=== PATIENT | female | born 1930 | race Caucasian/White ===

== ENCOUNTER → 2016-11-15 | Outpatient (CLI) | payer OTHER, BC ==
[~2016-11-15] MED LIST: ALT/10 PO; AMIO200T4 PO; ASPI81TA28 PO; ATOR80TA PO; CHOL100010 PO; CHOL100027 PO; CRD200 PO; DOXY100C2 PO; FERR1TAB23 PO; HYDR-5688 PO; ISOS120T5 PO; LETR2TAB PO; LEVO88TA PO; MAGN400T6 PO; METO50TA16 PO; NITR-5 PO; NITR0.4S UT; PANT40TA PO; POLY335019 PO; PRED10TA PO; TPRSR/25 PO; ULT/50 PO; ZNTT/150 PO
[2016-11-15 17:36] LABS: URINE APPEARANCE CLEAR (CLEAR); URINE BILIRUBIN NEG (NEG); URINE COLOR YELLOW; URINE EPITHELIAL CELL AUTO 0-5 /lpf (0-5); URINE NITRITE NEG (NEG); URINE SPECIFIC GRAVITY 1.009 (1.000-1.030); UROBILINOGEN NEG (NEG); ZZUR CULT IF INDIC CLEAN CATCH NO
[2016-11-15 17:47] LABS: BLOOD UREA NITROGEN 13 mg/dl (7-18); BUN/CREATININE RATIO 12.1 (10-20); CALCIUM 9.2 mg/dl (8.5-10.1); CARBON DIOXIDE 30 mmol/L (21-32); CHLORIDE 104 mmol/L (98-107); GLUCOSE 110 mg/dl (70-99); MAGNESIUM 2.3 mg/dl (1.8-2.4); SODIUM 141 mmol/L (136-145)
[2016-11-15 17:52] LABS: MANUAL MICROSCOPIC REQUIRED? NO; REVIEW REQ? NO
== END | disposition home or self-care (01) ==
LOC: C.LABPVFM 15:24
PROVIDERS: ATTEND Family Medicine
DX: R39.9 Unspecified symptoms and signs involving the genitourinary system (principal); M79.1 Myalgia

== ENCOUNTER 2016-11-22 06:35 | Observation (INO) | payer OTHER, BC ==
[~2016-11-22] VITALS: Ht 170.2 cm; Wt 80.0 kg
[~2016-11-22 06:35] MED LIST changes: -AMIO200T4 PO; -ASPI81TA28 PO; -CHOL100027 PO; -CRD200 PO; -DOXY100C2 PO; -METO50TA16 PO; -POLY335019 PO; -PRED10TA PO; -TPRSR/25 PO; -ULT/50 PO; -ZNTT/150 PO
[2016-11-22] MEDS ORDERED: LIDOCAINE HCL 1% 20 ML VIAL ONE (07:17)
[2016-11-22] MEDS ORDERED: BACITRACIN 50000 UNIT VIAL ONE (07:17)
[2016-11-22] MEDS ORDERED: BUPIVACAINE 0.5 % 5 MG/1 ML MPF 30ML VIAL ONE (07:17)
[2016-11-22] MEDS ORDERED: ULT/50 PO (07:24)
[2016-11-22] MEDS ORDERED: TPRSR/25 PO (07:24)
[2016-11-22] MEDS ORDERED: ASPI81TA28 PO (07:25)
[2016-11-22] MEDS ORDERED: ZNTT/150 PO (07:25)
[2016-11-22 07:26] VITALS: BP 163/66; PULSE 73; TEMP 36.9; O2SAT 96; BMI 28.0
[2016-11-22] MEDS ORDERED: FENTANYL CITRATE INJ 50 MCG/1 ML 2 ML VIAL ONE ×2 (07:29→08:51)
[2016-11-22] MEDS ORDERED: MIDAZOLAM HCL 5 MG/ML 1 ML VIAL ONE (07:29)
--- NOTE | 2016-11-22 07:57 | History & Physical Bridge Note ---
H&P Re-Evaluation Bridge Note: I have examined the patient, reviewed the History & Physical and in the interval since the performance of the History & Physical I have noted the following changes of clinical significance: New HNP dictated today pt with SSS for dual chamber ppm
--- NOTE | 2016-11-22 07:58 | Procedure Note ---
Pre-Mod Sedation Assessment General Date of Moderate Sedation: Nov 22, 2016. Vital Signs: Vital Signs Past 12 Hours Date Time Temp Pulse Resp B/P Pulse Ox O2 Delivery O2 Flow Rate FiO2 11/22/16 07:26 36.9 73 18 163/66 96 Room Air Review Cardiovascular: regular rate, rhythm Abdomen: soft Lungs: lungs clear Airway Class: II Pre-Sedation Airway Assessment Oral Cavity: Dentures, WNL Able to Visualize Vocal Cords: No Short Thick Neck: No Hx of Sleep Apnea: No Smoking Status: Former Smoker Mallampati Classification: Class II ASA Classification: Class II Procedure Planning Contraindications-for Mod Sed: None Yes Notes The planned sedation has been discussed with the patient and consent obtained. I have identified the patient, determined the appropriateness of sedation and have assessed the patient immediately prior to the procedure. All medicine(s) and interventions are by my order.
[2016-11-22] MEDS ORDERED: MIDAZOLAM HCL 1 MG/ML 2ML VIAL ONE (09:02)
[2016-11-22] MEDS ORDERED: METOPROLOL TARTRATE 1 MG/ML VIAL ONE (09:19)
--- NOTE | 2016-11-22 09:46 | Procedure Note ---
Post-Mod Sedation Assessment General Date of Moderate Sedation Nov 22, 2016. Vital Signs: Vital Signs Past 12 Hours Date Time Temp Pulse Resp B/P Pulse Ox O2 Delivery O2 Flow Rate FiO2 11/22/16 07:26 36.9 73 18 163/66 96 Room Air Review - Discharge Criteria Vital Signs Stable: Yes Alert/Oriented/Conversant: Yes Returned to Baseline Mental St: Yes Nausea Absent/Minimal: Yes Pain/Discomfort/Absent/Minimal: Yes Normal/Baseline Respirations: Yes Active Bleeding?: No Pt Received D/C Instructions: N/A Prescriptions Given: None Specific Proced. D/C Criteria Distal Pulses Present (Cardiac: N/A Groin site assessed-Card Cath: N/A Voided Prior To Discharge: N/A Discharged Patients Adult Escort/Transportation: N/A
--- NOTE | 2016-11-22 09:47 | [facility] Post Operative Brief Note ---
Immediate Operative Summary Operative Date Nov 22, 2016. Pre-Operative Diagnosis TBS Post-Operative Diagnosis SAME Procedure(s) Performed DUAL CHAMBER PACEMAKER RATE RESPONSIVE UNDER FLUOROSCOPIC GUIDANCE WITH PERIPHERAL VENOGRAM Surgeon JEREMY DOMÍNGUEZ Rn Midwife Surgeon(s) NONE Estimated Blood Loss 15CC Findings NONE Fluids (cc crystalloids) 200CC Specimens NONE Drains NONE Anesthesia 7MG VERSED AND 200MCG FENTANYL Complication(s) None Disposition PCU
--- NOTE | 2016-11-22 09:51 | Discharge Instructions ---
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 Current Hospital Diet Patient's current hospital diet: AHA Diet (Heart Healthy) Discharge Diet Recommended Diet: AHA Diet (Heart Healthy) Procedures Procedures Performed: DUAL CHAMBER PACEMAKER RATE RESPONSIVE UNDER FLUOROSCOPIC GUIDANCE WITH PERIPHERAL VENOGRAM Pending Studies Studies pending at discharge: no Medical Emergencies . Who to Call and When: Medical Emergencies: If at any time you feel your situation is an emergency, please call 911 immediately. . Non-Emergent Contact Non-Emergency issues call your: Pharmacy Laboratory Technician . . "Provider Documentation" section prepared by Bernadine Delarosa. VTE Core Measure Inpt VTE Proph given/why not?: SCD's
--- NOTE | 2016-11-22 09:55 | Discharge Summary ---
Discharge Summary Admission Date: 11/22/2016 Discharge Date: Nov 23, 2016 Discharge Disposition: Home Principal Diagnosis: TACHY-GUSTAVO SYNDROME Secondary Diagnoses/Problems: PAF NO LONGER ON COUMADIN SINUS ARREST/JUNCTIONAL RHYTHM HTN HLD CKD STAGE III Procedures: DUAL CHAMBER RATE RESPONSIVE PERMANENT PACEMAKER Medication Reconciliation New Medications: Amiodarone HCl (Amiodarone HCl) 200 Mg Tab 400 MG PO BID for 14 Days, #56 TAB take 400mg 2x a day by mouth for 2 weeks then decrease to 200mg daily Continued Medications: Aspirin (Aspirin Ec) 81 Mg Tab 81 MG PO DAILY Atorvastatin Calcium (Lipitor) 80 Mg Tab 80 MG PO DAILY, TAB Cholecalciferol (Vitamin D) 1,000 Inter.unit Tab 2000 INTER.UNIT PO DAILY, TAB Ferrous Sulfate (Iron) 325 Mg Tab 1 TAB PO DAILY Isosorbide Mononitrate Ext Rel (Imdur Ext Rel) 120 Mg Ertab 120 MG PO QAM, 0 Refills Letrozole (Femara) 2.5 Mg Tab 2.5 MG PO DAILY, TAB Levothyroxine Sodium (Synthroid) 88 Mcg Tab 88 MCG PO DAILY, TAB Magnesium Oxide (Mag-Ox) 400 Mg Tab 400 MG PO HS, 0 Refills Metoprolol Succinate (Metoprolol Succinate ER) 25 Mg Tabcr 12.5 MG PO DAILY, #90 Nitroglycerin (Nitrostat) 0.4 Mg Sub 0.4 MG UT UD PRN for Chest Pain PLACE ONE TABLET UNDER THE TONGUE EVERY 5 MINUTES FOR UP TO 3 DOSES IF NEEDED FOR CHEST PAIN. Pantoprazole (Protonix) 40 Mg Tab 40 MG PO BID, TAB Ramipril (Altace) 10 Mg Cap 5 MG PO DAILY, CAP Ranitidine (Zantac) 150 Mg Tab 150 MG PO BID, TAB Tramadol Hcl (Ultram) 50 Mg Tab #360 Hospital Course PT ADMITTED FOR ELECTIVE PACEMAKER IMPLANT DUE TO TACHYBRADY SYNDROME. PT UNDERWENT PROCEDURE WITHOUT ANY COMPLICATIONS MONITORED OVERNIGHT AND DISCHARGED HOME FOLLOWING DAY Total time spent on discharge = This includes examination of the patient, discharge planning, medication reconciliation, and communication with other providers. Discharge Instructions ACTIVITY RECOMMENDATIONS: * Do not raise affected arm over head for 4 weeks. SPECIAL CARE INSTRUCTIONS: * If bleeding occurs, apply direct pressure to area for 5 minutes. * Call your doctor if you have severe pain, fever, drainage or bleeding at site. * Keep dry for 48 hours then remove. * Keep any scheduled doctor's appointment. * Implant Card - hand held device with website information given. SKIN IRRITATION: * You may experience some redness and/or swelling in the area where radiation was administered. If any skin irritation occurs, please contact your family physician. FOLLOW UP VISIT: Keep any scheduled doctor appointments.
[2016-11-22] MEDS ORDERED: NITROGLYCERIN 0.4 MG SL PER TAB CHARGE UT PRN (10:00)
[2016-11-22] MEDS ORDERED: LETROZOLE 2.5 MG TAB PO SCH (11:30)
[2016-11-22] MEDS ORDERED: IV FLUIDS COMPLETED PRN (11:45)
[2016-11-22] MEDS: OXYCODONE/ACETAMINOPHEN 5-325 TAB PO PRN ×3 (11:46→22:16)
[2016-11-22 11:50] VITALS: BP 162/71; PULSE 80; TEMP 36.4; O2SAT 95; Ht 170.2 cm; Wt 80.0 kg
[2016-11-22 12:00] VITALS: BP 159/71; PULSE 82; TEMP 36.4; O2SAT 95
[2016-11-22 16:00] VITALS: BP 123/70; PULSE 64; TEMP 36.4; O2SAT 95
[2016-11-22 20:00] VITALS: BP 131/66; PULSE 74; TEMP 36.8; O2SAT 94
[2016-11-22] MEDS: ACETAMINOPHEN 325 MG TAB PO PRN (20:05)
[2016-11-22] MEDS ORDERED: MAGNESIUM OXIDE 400 MG TAB PO SCH (21:00)
[2016-11-22] MEDS: RANITIDINE HCL 150 MG TAB PO SCH (21:18)
[2016-11-22] MEDS: PANTOprazole SOD 40 MG TAB PO SCH (21:18)
[2016-11-23 00:10] VITALS: BP 159/83; PULSE 79; TEMP 36.7; O2SAT 96
[2016-11-23 04:00] VITALS: BP 151/66; PULSE 71; TEMP 36.7; O2SAT 96
[2016-11-23] MEDS: ACETAMINOPHEN 325 MG TAB PO PRN (04:26)
[2016-11-23] MEDS ORDERED: LEVOTHYROXINE 88 MCG TAB PO SCH (06:00)
--- NOTE | 2016-11-23 06:27 | DIAGNOSTIC IMAGING REPORT ---
CHEST 2 VIEWS ROUTINE CLINICAL HISTORY: EXACT TIME ORDERED Evaluate for pneumothorax and lead placement pacemaker position COMPARISON STUDY: 09/02/2015 FINDINGS: Placement of a permanent bipolar cardiac pacemaker. Leads are in good position. Lungs are clear. No evidence pneumothorax. IMPRESSION: Bipolar cardiac pacemaker in good position Electronically signed by: Jak Palencia M.D. 11/23/2016 6:25 AM Dictated Date/Time: 11/23/2016 6:25 AM
[2016-11-23 07:52] VITALS: BP 178/88; PULSE 88; TEMP 36.4; O2SAT 96
[2016-11-23] MEDS: PANTOprazole SOD 40 MG TAB PO SCH (07:56)
[2016-11-23] MEDS: RANITIDINE HCL 150 MG TAB PO SCH (07:58)
[2016-11-23] MEDS ORDERED: ENALAPRIL MALEATE 10 MG TAB PO SCH ×2 (09:00)
[2016-11-23] MEDS ORDERED: FERROUS SULFATE 325 MG TAB PO SCH (09:00)
[2016-11-23] MEDS ORDERED: METOPROLOL SUCC 25MG EXT REL TAB PO SCH (09:00)
[2016-11-23] MEDS ORDERED: ASPIRIN 81 MG ECTAB PO SCH (09:00)
[2016-11-23] MEDS ORDERED: ISOSORBIDE MONONITRATE 60 MG TABCR PO SCH (09:00)
[2016-11-23] MEDS ORDERED: ATORVASTATIN 20 MG TAB PO SCH (09:00)
[2016-11-23] MEDS ORDERED: ATORVASTATIN 40 MG TAB PO SCH (09:00)
[2016-11-23] MEDS ORDERED: CHOLECALCIFEROL 1000 INTER.UNIT TAB PO SCH (09:00)
[2016-11-23] MEDS ORDERED: LETROZOLE 2.5 MG TAB PO SCH (09:00)
[2016-11-23 09:22] VITALS: BP 154/85; PULSE 93
[2016-11-23 11:12] VITALS: BP 154/85; PULSE 93; TEMP 36.4; O2SAT 96
[2016-11-23] MEDS ORDERED: CRD200 PO (11:32)
[2016-11-23] MEDS: OXYCODONE/ACETAMINOPHEN 5-325 TAB PO PRN (12:16)
--- NOTE | 2016-11-23 14:52 | HISTORY & PHYSICAL EXAMINATION ---
DATE OF ADMISSION: 11/22/2016 REFERRING PHYSICIAN: Dr. Jak Dickinson. HISTORY OF PRESENT ILLNESS: This is an 85-year-old female who has been having evidence of tachy-keisha syndrome and having to stop her metoprolol and amiodarone. She continued to have palpitations and tachycardia as well as more profound fatigue and shortness of breath along with lightheadedness and dizziness. For this reason, she was recommended a permanent pacemaker. PAST MEDICAL HISTORY: Apices, hypertension, benign neoplasm of large bowel, constipation, mitral regurgitation, hyperlipidemia, chronic kidney disease, stage 3. OUTPATIENT MEDICATIONS: Ranitidine, Lopressor 12.5 daily, Protonix, iron supplement, Altace 5 mg, Synthroid 88 mcg, atorvastatin, tramadol, aspirin, Tylenol, MiraLax, Imdur, nitroglycerin PAST SURGICAL HISTORY: Angioplasty, colonoscopy, breast lump removed, cystoscopy. FAMILY HISTORY: Not significant. ALLERGIES: ADHESIVE TAPE. SOCIAL HISTORY: She is . Former tobacco user. No illicit drug use. REVIEW OF SYSTEMS: All other 10-point review of systems reviewed and are essentially negative at this time. See HPI for pertinent positives. PHYSICAL EXAMINATION: VITAL SIGNS: Blood pressure 163/66, heart rate 77, respirations 18, oxygen saturation 96% on room air, temperature 36.9 degrees Celsius. GENERAL: She is awake, alert and oriented x3, in no acute distress, sitting up comfortably on the exam table. HEENT: Normocephalic, atraumatic. Extraocular motion intact. Sclerae are nonicteric. Mucous membranes moist. NECK: Supple, no carotid bruits appreciated. No JVD. Carotid upstrokes normal. CARDIOVASCULAR: Normal S1, S2, regular rate and rhythm. Positive systolic murmur 3/6, pulses intact. Trace lower extremity edema bilaterally. PULMONARY: Clear to auscultation bilaterally. No wheezes, rales, rhonchi. ABDOMEN: Positive bowel sounds, soft, nontender. NEUROLOGIC: Grossly intact. SKIN: Grossly warm and dry. PERTINENT TESTING: Results EKG in 07/2016, sinus rhythm, 69 beats per minute, right bundle-branch block; December 2015, sinus rhythm with marked sinus arrhythmia at 60 beats per minute, first-degree AV block, right bundle-branch block; 12/29/2015 marked sinus keisha with sinus arrhythmia at 46 beats per minute, right bundle-branch block. Echocardiogram in December 2014, EF is normal. Moderate LVH. Severe mitral annular calcification, mildly calcified leaflets of the mitral valve, mild mitral stenosis and mild mitral regurgitation, grade 2 diastolic dysfunction, aortic valve sclerosis, no aortic stenosis, mild aortic valve regurgitation. in December 2015, sinus rhythm with an average heart rate of 52 beats per minute, the slowest heart rate was 32 beats per minute at 7 in the morning along with a junctional escape and sinus arrest and one episode of nonsustained VT. Most recent labs were all within normal limits. IMPRESSION: 1. Tachy-keisha syndrome. 2. Paroxysmal atrial fibrillation, no longer on Coumadin, previously on amiodarone but stopped due to bradycardia. 3. Sinus arrest and junctional arrhythmias. 4. Right bundle-branch block. 5. Hypertension. 6. Hyperlipidemia. 7. Chronic kidney disease, stage 3. PLAN: Recommend dual-chamber permanent pacemaker under fluoroscopic guidance along with peripheral. The patient was informed of the risks, benefits and alternatives of the procedure. Risks include but not limited to sudden cardiac , cardiac arrhythmias, cerebrovascular accident, myocardial infarction, injury to the blood vessels, chamber of the heart, lungs, bleeding and infection. The patient understood these and agreed to the procedure as planned. Informed consent was obtained. NIK
--- NOTE | 2016-11-23 15:00 | OPERATIVE REPORT ---
DATE OF OPERATION: 11/22/2016 PREOPERATIVE DIAGNOSIS: Tachybrady syndrome. POSTOPERATIVE DIAGNOSIS: Same. PROCEDURE: Dual chamber rate responsive permanent pacemaker under fluoroscopic guidance along with peripheral venogram. SURGEON: Bernadine Delarosa DO ICE [employer] VAN VENDOR: None. ANESTHESIA: Monitored conscious sedation. DESCRIPTION OF THE PROCEDURE: The patient was brought into the electrophysiology lab in a fasting state. She was connected to continuous cardiac monitoring. A time-out was performed to ensure patient's identity and procedure correctly. The patient was prepped and draped over the left infraclavicular space in a normal surgical standard fashion. The patient received prophylactic antibiotics prior to incision. Moderate conscious sedation was given throughout the procedure for patient's comfort level. [place] precautions were maintained throughout the procedure. A 10 mL of 1% lidocaine, bupivacaine mixture were given in the left deltoid groove. Incision was made in the deltopectoral groove. Blunt dissection was performed to identify a cephalic vein that was then isolated 0 silk ties and nicked with an 11 blade. A guide wire was advanced without any restrictions. The dilator was removed and a second 8-Indian sheath was inserted over the guidewire without any resistance and a second guidewire was inserted through the 8-Indian sheath to allow for retained venous access. Right ventricular pacing lead was advanced through the sheath into the right ventricle and positioned into the ventricular apex under fluoroscopic guidance. There was adequate pacing and sensing thresholds and there was no diaphragmatic stimulation at high output pacing. The 8-Indian sheath was peeled away and lead was fixated to pectoralis muscle using 0 silk suture. A second 8-Indian sheath was inserted over the retained guidewire to the cephalic vein; however, access tight and I ended up losing access, so we then had to do a peripheral venogram 10 mL of IV contrast diluted in 10 mL of saline followed by 20 mL flush to identify the axillary vein. Using a venous puncture stick, the axillary vein was obtained and the guidewire was inserted without any resistance. The 8-Indian sheath was then advanced over the guidewire without any resistance and the dilator and guidewire were removed. The right atrial lead was then advanced through the sheath into the right atrium and positioned into the right atrial appendage under fluoroscopic guidance. There was adequate pacing and sensing thresholds and no diaphragmatic stimulation with high output pacing. The 8-Indian sheath was split and lead was fixated to the pectoralis muscle using 0 silk suture. An additional 5 mL of 1% lidocaine, bupivacaine mixture were given in the pectoralis fascia. Then using blunt dissection over the pectoralis muscle a pacemaker pocket was created. The pocket was flushed with copious amounts of bacitracin saline wash and inspected for hemostasis. The pulse generator was then attached to the leads making sure that the pins were in appropriate position, passed the set screws and the set screws were all tightened. The pulse generator was then placed in the pocket, making sure that the leads were lying flat beneath the device. A stay stitch using 0 silk suture was used to secure the device to the pectoralis muscle. The incision was closed in a 3-layer fashion using a 2-0 Vicryl interrupted suture, followed by a 3-0 Vicryl interrupted suture, followed by a 4-0 Monocryl running stitch and Dermabond was applied. EQUIPMENT: Pulse generator is M[employer] Landa [id number], serial #[id number], [email or web address]. Right atrial lead, Medtronic 5076-52 cm, serial #[id number]. Right ventricular lead, Medtronic 5076-58 cm, serial #[id number]. INTRAOPERATIVE TESTIN. Right atrial lead: P-wave sensing 1.5 millivolts, impedance 765 ohms, and threshold 0.7 volts at 0.9 milliamps. 2. Right ventricular lead: R-wave 12.9 millivolts, impedance 1093 ohms, and threshold 0.5 volts at 0.4 milliamps. FINAL MEASUREMENTS THROUGH THE DEVICE: 1. Right atrial lead: P-wave sensing 1.8 millivolts, impedance 589 ohms, and threshold 0.5 volts at 0.4 milliseconds. 2. Right ventricular lead: R-wave sensing 12.4 millivolts, impedance 684 ohms, and threshold 0.5 volts at 0.4 milliseconds. FINAL PARAMETERS: MVP-R 60/110. Right atrial amplitude 3.5 volts, pulse width 0.4 milliseconds, sensitivity 0.3 millivolts. Right ventricular amplitude 3.5 volts, pulse width 0.4 milliseconds, sensitivity 0.9 millivolts. IMPRESSION: Successful implantation of a dual chamber rate responsive permanent pacemaker under fluoroscopic guidance along with the peripheral venogram secondary to tachybrady syndrome. PLAN: Monitor patient overnight, 12-lead ECG, chest x-ray. She is not allowed to lift left elbow or left shoulder for 1 month and not lift more than 10 pounds with the left arm for 2 weeks. She can shower in 2 days. We will restart her amiodarone load 400 mg twice a day for 2 weeks then followed by 200 mg daily. She should follow up in our [facility] [place] office in 7-10 days for device and wound check. I attest to the content of the Intraoperative Record and any orders documented therein. Any exceptions are noted below. MTDD
[2016-11-23] MEDS ORDERED: AMIODARONE 200 MG TAB PO SCH (21:00)
[2016-11-23] MEDS ORDERED: CHOL100027 PO (23:55)
[2017-03-22] MEDS ORDERED: PRED10TA PO (05:35)
--- NOTE | 2017-04-28 08:43 | CODING QUERY MEDICAL NECESSITY ---
CQSUPPORTING DIAGNOSIS NEEDED A supporting diagnosis is required for the test/procedure performed on this patient in order for us to be reimbursed by the patient's insurance. Please provide a supporting diagnosis for the following test/procedure listed below next to the test name along with your signature. *If there is no additional diagnosis for this patient that would support the following test/procedure please document that below next to the test/procedure. Test(s)/Procedure(s) that require a supporting diagnosis: DOS 11/22/16 SINGLE AND DUAL CHABER PERMANENT CARDIAC PACEMAKER Provider Signature: Date: Thank you Kelle Reyes Health Information Management Once completed, please kindly fax back to [phone] For questions please call [phone]
== END 2016-11-23 13:05 | disposition home or self-care (01) ==
LOC: C.ACU 06:35 → C.MSICU 09:49
PROVIDERS: ADMIT Internal Medicine; ATTEND Internal Medicine
DX: I49.5 Sick sinus syndrome (principal); I48.0 Paroxysmal atrial fibrillation; N18.3 Chronic kidney disease, stage 3 (moderate); I12.9 Hypertensive chronic kidney disease with stage 1 through stage 4 chronic kidney disease, or unspecified chronic kidney disease; E78.5 Hyperlipidemia, unspecified; I45.10 Unspecified right bundle-branch block; Z79.82 Long term (current) use of aspirin; Z87.891 Personal history of nicotine dependence; R00.2 Palpitations; R00.0 Tachycardia, unspecified; Z95.0 Presence of cardiac pacemaker; I80.8 Phlebitis and thrombophlebitis of other sites; F41.9 Anxiety disorder, unspecified; I48.91 Unspecified atrial fibrillation; I25.10 Atherosclerotic heart disease of native coronary artery without angina pectoris; K21.9 Gastro-esophageal reflux disease without esophagitis; I51.9 Heart disease, unspecified; I10 Essential (primary) hypertension; E03.9 Hypothyroidism, unspecified; I25.2 Old myocardial infarction; Z98.51 Tubal ligation status; Z85.3 Personal history of malignant neoplasm of breast

== ENCOUNTER 2016-11-23 21:28 | Emergency (ER) | payer OTHER, BC ==
[~2016-11-23] VITALS: Ht 170.2 cm; Wt 82.0 kg
[~2016-11-23 21:28] MED LIST changes: +ASPI81TA28 PO; +CRD200 PO; -HYDR-5688 PO; -NITR-5 PO; +TPRSR/25 PO; +ULT/50 PO; +ZNTT/150 PO
[2016-11-23 21:31] VITALS: TEMP 36.4; Ht 170.2 cm; Wt 82.0 kg
[2016-11-23] MEDS ORDERED: SODIUM CHLORIDE 0.9% 500ML 500 ML IV STA (22:24)
[2016-11-23 22:33] LABS: BASO % 0.4 %; BASO ABS # 0.04 K/uL (0-0.2); COMPLETE YES; EOS % 1.8 %; HEMATOCRIT 40.5 % (37-47); IG% 0.1 %; LYMPH % 18.4 %; LYMPH ABS # 1.67 K/uL (1.2-3.4); MEAN CELL VOLUME 87.1 fL (80-100); MEAN CORPUSCULAR HEMOGLOBIN 30.1 pg (25-34); MEAN CORPUSCULAR HGB CONC 34.6 g/dl (32-36); MEAN PLATELET VOLUME 9.2 fL (7.4-10.4); MONO % 11.6 %; NEUT % 67.7 %; PLATELET COUNT 269 K/uL (130-400); RED BLOOD COUNT 4.65 M/uL (4.2-5.4); WHITE BLOOD COUNT 9.06 K/uL (4.8-10.8)
[2016-11-23 22:36] VITALS: O2SAT 97
[2016-11-23 22:41] LABS: ALT/SGPT 19 U/L (12-78); BLOOD UREA NITROGEN 15 mg/dl (7-18); BUN/CREATININE RATIO 13.6 (10-20); CALCIUM 9.1 mg/dl (8.5-10.1); CARBON DIOXIDE 23 mmol/L (21-32); CHLORIDE 106 mmol/L (98-107); GLUCOSE 193 mg/dl (70-99); POTASSIUM 3.4 mmol/L (3.5-5.1); SODIUM 140 mmol/L (136-145)
--- NOTE | 2016-11-23 22:41 | EMERGENCY ROOM VISIT NOTE ---
History Report prepared by Maday: Jeri Timmons Under the Supervision of: Dr. Jorge Billings D.O. First contact with patient: 22:22 Chief Complaint: IRREGULAR HEARTBEAT Stated Complaint: PACEMAKER PLACED 11/22, IRREGULAR HEARTBEAT History of Present Illness The patient is a 85 year old female who presents to the Emergency Room with complaints of a persistent fast heart rate that began today. The patient had a pacemaker placed yesterday morning by Dr. Layne and was discharged today around noon. Since then, she has noticed her heart racing. Her daughter notes that it reached up to at least 120 but has since slowed down some. She had nausea earlier today, which did not last long and has resolved. Currently, she complains of left arm pain from her elbow through to her fingers. She has been eating and drinking normally. Denies chest pain, vomiting, or other complaints. She follows up with Dr. Dickinson of Cardiology. Source of History: patient Onset: today Position: other (cardiac) Symptom Intensity: HR of 120 Quality: other (racing heart rate) Timing: other (persistent) Associated Symptoms: + nausea, No chest pain, No vomiting Note: Other symptoms: left arm pain Review of Systems See HPI for pertinent positives & negatives. A total of 10 systems reviewed and were otherwise negative. Past Medical & Surgical Medical Problems: (1) Acute blood loss anemia (2) Anemia (3) Anxiety State Nos (4) Atrial fibrillation (5) Coronary artery disease (6) Dizziness (7) Esophageal Reflux (8) GI bleed (9) Heart attack (10) Heart disease (11) Heart palpitations (12) Hematuria (13) Hematuria, gross (14) HTN (hypertension) (15) Hyperlipidemia (16) Hypothyroidism Nos (17) Low back pain (18) [place] Breast-Central (19) Old Myocardial Infarct (20) Polymyalgia Rheumatica (21) Right flank pain (22) Rt flank pain (23) Sciatica (24) Sciatica (25) Spinal Stenosis, Lumbar Reg, W/Out Neurogenic Claudication (26) Superficial thrombophlebitis (27) Superficial thrombophlebitis (28) Symptoms involving urinary system (29) Symptoms involving urinary system (30) Syncope (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 Surgical Problems: (1) Cataract Extraction Status (2) History of cardiac radiofrequency ablation (3) History of esophagogastroduodenoscopy (4) History of partial mastectomy (5) Percutaneous Translum Coron Angioplasty Status (6) Tubal Ligation Status Family History FHx: heart disease Hypertension Social History Smoking Status: Never Smoker Alcohol Use: none Drug Use: none Marital Status: Housing Status: lives with family Occupation Status: retired Current/Historical Medications Scheduled Amiodarone HCl (Amiodarone HCl), 400 MG PO BID Aspirin (Aspirin Ec), 81 MG PO DAILY Atorvastatin Calcium (Lipitor), 80 MG PO DAILY Cholecalciferol (Vitamin D 1000 Unit), 2,000 INTER.UNIT PO DAILY Ferrous Sulfate (Iron), 1 TAB PO DAILY Isosorbide Mononitrate Ext Rel (Imdur Ext Rel), 120 MG PO QAM Letrozole (Femara), 2.5 MG PO DAILY Levothyroxine Sodium (Synthroid), 88 MCG PO DAILY Magnesium Oxide (Mag-Ox), 400 MG PO HS Metoprolol Succinate (Metoprolol Succinate ER), 12.5 MG PO DAILY Pantoprazole (Protonix), 40 MG PO BID Ramipril (Altace), 5 MG PO DAILY Ranitidine (Zantac), 150 MG PO BID Scheduled PRN Nitroglycerin (Nitrostat), 0.4 MG UT UD PRN for Chest Pain Tramadol Hcl (Ultram), 50 MG PO UD PRN for Pain Allergies Coded Allergies: Adhesives (Verified Allergy, Intermediate, RASH, 11/23/16) Latex (Verified Allergy, Unknown, SKIN IRRITATION, 11/23/16) Physical Exam Vital Signs Date Time Temp Pulse Resp B/P Pulse Ox O2 Delivery O2 Flow Rate FiO2 11/24/16 01:58 88 15 121/80 94 11/24/16 01:26 112 11/24/16 01:07 108 13 139/81 96 Room Air 11/24/16 00:48 102 18 164/102 98 Room Air 11/23/16 22:46 95 20 143/78 94 Room Air 11/23/16 22:37 97 Room Air 11/23/16 22:36 97 Room Air 11/23/16 22:36 97 Room Air 11/23/16 21:58 101 11/23/16 21:31 36.4 131 18 167/78 97 Room Air Physical Exam GENERAL: Patient is awake, alert, and in no acute distress. Patient is resting comfortably and showing no signs of anxiety EYES: The conjunctivae are clear. The pupils are round and reactive. EARS, NOSE, MOUTH AND THROAT: The nose is without any evidence of any deformity. Mucous membranes are moist tongue is midline NECK: The neck is nontender and supple. RESPIRATORY: Lung sounds were diminished in the right lung field. There was no tachypnea or respiratory distress noted CARDIOVASCULAR: Tachycardic but regular. There was no definite murmur noted to auscultation. GASTROINTESTINAL: The abdomen is soft. Bowel sounds are present in all quadrants. Abdomen is nontender MUSCULOSKELETAL/EXTREMITIES: There is no evidence of gross deformity full range of motion is noted in the hips and shoulders SKIN: There was trace pedal edema bilaterally. There was a recent pacemaker site in the left upper chest wall. There was ecchymosis in the left upper chest wall into the left shoulder. Pulses in the upper extremities were symmetric but there was trace edema in the left arm. NEUROLOGIC: Patient is awake alert and oriented x3 Medical Decision & Procedures ER Provider Diagnostic Interpretation: X ray results and stated below per my interpretation and radiology interpretation. Other radiology results per my review and radiologist interpretation: CHEST ONE VIEW PORTABLE CLINICAL HISTORY: Atypical chest pain. Arrhythmia. COMPARISON STUDY: 11/23/2016 FINDINGS: The cardiac and mediastinal contours remain stable. There is aortic tortuosity. There is a left subclavian dual-chamber central venous pacemaker. There is mild interstitial thickening, similar to the prior study. There is no acute parenchymal consolidation. There are no pleural effusions.[ IMPRESSION: AP portable study. No acute findings. Electronically signed by: Lincoln Walter M.D. 11/23/2016 10:46 PM Dictated Date/Time: 11/23/2016 10:45 PM Ultrasound of the left upper extremity was obtained in the emergency department. The report was reviewed. Preliminary Findings Only See Final Report For Complete Findings US VENOUS LEFT UPPER EXTREMITY: Nonocclusive thrombus in the left cephalic vein at the mid upper arm. No evidence of deep vein thrombosis. Pacemaker wires noted in the subclavian vein. Radiologist: Ha Dong MD Study ready at 23:59 and initial results transmitted at 00:02 CT of the chest was obtained in the emergency department. The report was reviewed. Preliminary Findings Only See Final Report For Complete Findings CTA CHEST: No evidence of pulmonary embolism. Left-sided transvenous pacemaker with lead tips in right atrium and ventricle. Soft tissue air and stranding at the surgical insertion site, compatible with recent insertion. No pneumothorax or effusion. Subsegmental likely atelectasis, predominantly dependently. Calcified granuloma right lower lobe. Mild cystic change at left lung base. Atherosclerotic calcifications of the tortuous aorta and its branches including the coronary arteries. Aortic valve calcifications. Small sliding hiatal hernia. Radiologist: Ha Dong MD Study ready at 01:13 and initial results transmitted at 01:29 Laboratory Results 11/23/16 22:15 Red Blood Count 4.65, Mean Corpuscular Volume 87.1, Mean Corpuscular Hemoglobin 30.1, Mean Corpuscular Hemoglobin Concent 34.6, Mean Platelet Volume 9.2, Neutrophils (%) (Auto) 67.7, Lymphocytes (%) (Auto) 18.4, Monocytes (%) (Auto) 11.6, Eosinophils (%) (Auto) 1.8, Basophils (%) (Auto) 0.4, Neutrophils # (Auto ) 6.13, Lymphocytes # (Auto) 1.67, Monocytes # (Auto) 1.05, Eosinophils # (Auto ) 0.16, Basophils # (Auto) 0.04 11/23/16 22:15 Test 11/23/16 22:15 White Blood Count 9.06 K/uL (4.8-10.8) Red Blood Count 4.65 M/uL (4.2-5.4) Hemoglobin 14.0 g/dL (12.0-16.0) Hematocrit 40.5 % (37-47) Mean Corpuscular Volume 87.1 fL (80-100) Mean Corpuscular Hemoglobin 30.1 pg (25-34) Mean Corpuscular Hemoglobin Concent 34.6 g/dl (32-36) Platelet Count 269 K/uL (130-400) Mean Platelet Volume 9.2 fL (7.4-10.4) Neutrophils (%) (Auto) 67.7 % Lymphocytes (%) (Auto) 18.4 % Monocytes (%) (Auto) 11.6 % Eosinophils (%) (Auto) 1.8 % Basophils (%) (Auto) 0.4 % Neutrophils # (Auto) 6.13 K/uL (1.4-6.5) Lymphocytes # (Auto) 1.67 K/uL (1.2-3.4) Monocytes # (Auto) 1.05 K/uL (0.11-0.59) Eosinophils # (Auto) 0.16 K/uL (0-0.5) Basophils # (Auto) 0.04 K/uL (0-0.2) RDW Standard Deviation 42.5 fL (36.4-46.3) RDW Coefficient of Variation 13.4 % (11.5-14.5) Immature Granulocyte % (Auto) 0.1 % Immature Granulocyte # (Auto) 0.01 K/uL (0.00-0.02) Prothrombin Time 10.7 SECONDS (9.0-12.0) Prothromb Time International Ratio 1.0 (0.9-1.1) Activated Partial Thromboplast Time 26.7 SECONDS (21.0-31.0) Partial Thromboplastin Ratio 1.0 Anion Gap 11.0 mmol/L (3-11) Est Creatinine Clear Calc Drug Dose 41.2 ml/min Estimated GFR () 53.0 Estimated GFR (Non- 45.7 BUN/Creatinine Ratio 13.6 (10-20) Calcium Level 9.1 mg/dl (8.5-10.1) Magnesium Level 2.0 mg/dl (1.8-2.4) Total Bilirubin 0.5 mg/dl (0.2-1) Direct Bilirubin < 0.1 mg/dl (0-0.2) Aspartate Amino Transf (AST/SGOT) 17 U/L (15-37) Alanine Aminotransferase (ALT/SGPT) 19 U/L (12-78) Alkaline Phosphatase 97 U/L (45-117) Total Creatine Kinase 129 U/L (26-192) Creatine Kinase MB 1.5 ng/ml (0.5-3.6) Creatine Kinase MB Ratio 1.2 (0-3.0) Troponin I 0.063 ng/ml (0-0.045) Pro-B-Type Natriuretic Peptide 204 pg/ml (0-1800) Total Protein 7.3 gm/dl (6.4-8.2) Albumin 3.5 gm/dl (3.4-5.0) Lipase 148 U/L (73-393) Laboratory results per my review. Medications Administered Medications (Trade) Dose Ordered Sig/Cholo Route Start Time Stop Time Status Last Admin Dose Admin Sodium Chloride (Nss 500ml) 500 ml @ 999 mls/hr Q31M STAT IV 11/23/16 22:24 11/23/16 22:54 DC 11/23/16 22:24 999 MLS/HR Oxycodone/ Acetaminophen (Percocet 5-325mg Tab) 1 tab NOW ONCE PO 11/24/16 00:15 11/24/16 00:16 DC 11/24/16 00:13 1 TAB ECG Indication: palpitations Rate (beats per minute): 115 Rhythm: atrial fibrillation Findings: RBBB, other (no PVCs) Comparison ECG Date: 11/07/15 Change: Increased rate, otherwise no change ED Course 4: The patient was evaluated in room A12B. A complete history and physical examination were performed. Ordered NSS 500 ml @ 999 mls/hr IV. 2336: The patient's pacemaker was interrogated and was normal. 0015: Ordered Oxycodone/Acetaminophen 1 tab PO. 0135: I discussed the case with Dr. Clinton Jimenez Cardiology. 0139: Upon reevaluation, the patient is resting comfortably. I discussed the results and treatment plan with the patient. She verbalized agreement of the treatment plan. The patient was discharged home. Medical Decision Prior records/ancillary studies reviewed. Triage Nursing notes reviewed. The patient's history was concerning for palpitations. Differential diagnosis: Etiologies such as premature contractions, electrolyte abnormality, cardiac dysrhythmia, thyroid dysfunction, pulmonary embolism, infection, gastrointestinal, as well as others were entertained. The patient is an 85-year-old female who presented to the emergency department for an evaluation of palpitations. The patient recently had a pacemaker placed for tachybradycardia syndrome. Complains of left arm pain and left arm swelling. She has some ecchymosis around the pacemaker site but there is no signs of infection. The patient's pacemaker was capturing with magnet. The pacemaker was interrogated in the emergency department and appears to be properly functioning. The patient was found have a nonocclusive cephalic vein clot in her left arm. For this reason a CT the chest was obtained. No definite signs of pulmonary embolism were noted. I discussed the patient's laboratory and radiographic studies with her and her family member. I also discussed her case with her primary proofsheet corrector. They were encouraged to rest and avoid any strenuous activity. They were encouraged to continue all medications as prescribed. There are also encouraged to call their pharmacist to inquire about starting on her medications that she was prescribed when she was discharged from the hospital. Otherwise she was encouraged to return to the emergency department immediately if symptoms change worsen or the need arises. The patient was treated with IV fluids and pain medication emergency department. On subsequent reevaluation she was feeling much better. Consults Time Called: 013 Consulting Physician: Dr. Clinton Jimenez Cardiology Returned Call: 013 I discussed the case with him. Impression Primary Impression: Palpitations Additional Impressions: Sinus tachycardia S/P placement of cardiac pacemaker Superficial thrombophlebitis of left upper extremity Scribe Attestation The scribe's documentation has been prepared under my direction and personally reviewed by me in its entirety. I confirm that the note above accurately reflects all work, treatment, procedures, and medical decision making performed by me. Departure Information Dispostion Home / Self-Care Referrals Rory Hatch M.D. (PCP) Alan Alonzo M.D. Patient Instructions ED Palpitations, My [facility] Additional Instructions Continue all medications as prescribed. Rest and avoid any strenuous activity. Call your proofsheet corrector in the morning to schedule a follow-up appointment. Problem Qualifiers
[2016-11-23 22:43] LABS: PROTHROMBIN TIME (PATIENT) 10.7 SECONDS (9.0-12.0)
--- NOTE | 2016-11-23 22:47 | DIAGNOSTIC IMAGING REPORT ---
CHEST ONE VIEW PORTABLE CLINICAL HISTORY: Atypical chest pain. Arrhythmia. COMPARISON STUDY: 11/23/2016 FINDINGS: The cardiac and mediastinal contours remain stable. There is aortic tortuosity. There is a left subclavian dual-chamber central venous pacemaker. There is mild interstitial thickening, similar to the prior study. There is no acute parenchymal consolidation. There are no pleural effusions.[ IMPRESSION: AP portable study. No acute findings. Electronically signed by: Lincoln Walter M.D. 11/23/2016 10:46 PM Dictated Date/Time: 11/23/2016 10:45 PM
[2016-11-23 23:01] LABS: ALKALINE PHOSPHATASE 97 U/L (45-117); AST/SGOT 17 U/L (15-37); CKMB/CK RATIO 1.2 (0-3.0)
[2016-11-23] MEDS ORDERED: CHOL100027 PO (23:55)
[2016-11-24] MEDS ORDERED: OXYCODONE/ACETAMINOPHEN 5-325 TAB PO ONE (00:15)
[2016-11-24] MEDS ORDERED: OPTIRAY 320 IV PRN (00:45)
[2016-11-24 01:58] VITALS: BP 121/80; PULSE 88; O2SAT 94
--- NOTE | 2016-11-24 06:04 | DIAGNOSTIC IMAGING REPORT ---
VENOUS DOPPLER LEFT ARM UPPER EXTREMITY VENOUS DOPPLER HISTORY: Pain. Edema. LUE swelling, recent pacer placement COMPARISON STUDY: None. FINDINGS: The venous structures are patent. Nonocclusive thrombus in the left cephalic vein. IMPRESSION: No DVT within the upper extremity. Superficial venous thrombosis left cephalic vein Electronically signed by: Jak Palencia M.D. 11/24/2016 6:03 AM Dictated Date/Time: 11/24/2016 6:02 AM
--- NOTE | 2016-11-24 06:29 | DIAGNOSTIC IMAGING REPORT ---
CHEST CTA for PULMONARY ARTERIES CT DOSE: HISTORY: Chest pain dyspnea TECHNIQUE: Multiaxial CT images of the chest were performed following the intravenous administration of contrast to evaluate the pulmonary arteries. Maximal intensity projection images were also obtained. COMPARISON STUDY: None. FINDINGS: There is a normal caliber thoracic aorta with no evidence for dissection. There is no evidence for pulmonary embolus. No pleural effusions. No pneumothorax. The liver and spleen are unremarkable. No mediastinal or hilar lymphadenopathy. The central airways are patent. The lungs are clear. Mild dependent basilar atelectasis. Recent cardiac pacemaker placement small hiatal hernia. IMPRESSION: No evidence for pulmonary embolus. Electronically signed by: Jak Palencia M.D. 11/24/2016 6:27 AM Dictated Date/Time: 11/24/2016 6:26 AM
[2017-03-22] MEDS ORDERED: PRED10TA PO (05:35)
== END 2016-11-24 01:59 | disposition home or self-care (01) ==
LOC: C.EDB 21:29 → C.EDA 11-24 01:59
DX: R00.2 Palpitations (principal); R00.0 Tachycardia, unspecified; Z95.0 Presence of cardiac pacemaker; I80.8 Phlebitis and thrombophlebitis of other sites; F41.9 Anxiety disorder, unspecified; I48.91 Unspecified atrial fibrillation; I25.10 Atherosclerotic heart disease of native coronary artery without angina pectoris; K21.9 Gastro-esophageal reflux disease without esophagitis; I51.9 Heart disease, unspecified; I10 Essential (primary) hypertension; E78.5 Hyperlipidemia, unspecified; E03.9 Hypothyroidism, unspecified; I25.2 Old myocardial infarction; Z98.51 Tubal ligation status; Z85.3 Personal history of malignant neoplasm of breast; Z79.82 Long term (current) use of aspirin

== ENCOUNTER → 2016-12-07 | Outpatient (CLI) | payer OTHER, BC ==
[~2016-12-07] MED LIST changes: +AMIO200T4 PO; -CHOL100010 PO; +CHOL100027 PO; +DOXY100C2 PO; +METO50TA16 PO; +POLY335019 PO; +PRED10TA PO
--- NOTE | 2016-12-07 13:07 | DIAGNOSTIC IMAGING REPORT ---
LEFT UPPER EXTREMITY VENOUS DOPPLER ULTRASOUND CLINICAL HISTORY: Left upper extremity pain. COMPARISON STUDY: Left upper extremity venous Doppler November 23, 2016. FINDINGS: The left internal jugular, subclavian, axillary, brachial, basilic, radial and ulnar veins are patent. Superficial thrombus within the left cephalic vein is unchanged since exam of November 23, 2016. IMPRESSION: 1. No deep venous thrombus within the left upper extremity. 2. No change in superficial thrombus within the left cephalic vein since ultrasound of November 23, 2016. Electronically signed by: Jagjit Toure M.D. 12/07/2016 1:06 PM Dictated Date/Time: 12/07/2016 1:04 PM
== END | disposition home or self-care (01) ==
LOC: C.ULTR 11:59
PROVIDERS: ATTEND Internal Medicine Cardiovascular Disease
DX: M79.622 Pain in left upper arm (principal); Z86.718 Personal history of other venous thrombosis and embolism

== ENCOUNTER 2017-01-24 13:37 | Observation (INO) | payer OTHER, BC ==
[~2017-01-24] VITALS: Ht 170.2 cm; Wt 78.6 kg
[~2017-01-24 13:37] MED LIST changes: -AMIO200T4 PO; -DOXY100C2 PO; -METO50TA16 PO; -POLY335019 PO; -PRED10TA PO
[2017-01-24] MEDS ORDERED: ASPIRIN 81 MG CHEW PO STA (13:55)
[2017-01-24] MEDS ORDERED: NITROGLYCERIN 0.4 MG SL PER TAB CHARGE SL PRN ×2 (14:00→16:45)
[2017-01-24 14:19] LABS: BASO % 0.3 %; BASO ABS # 0.03 K/uL (0-0.2); COMPLETE YES; EOS % 1.1 %; IG% 0.6 %; LYMPH % 17.7 %; LYMPH ABS # 2.08 K/uL (1.2-3.4); MEAN CELL VOLUME 85.2 fL (80-100); MEAN CORPUSCULAR HEMOGLOBIN 29.5 pg (25-34); MEAN CORPUSCULAR HGB CONC 34.7 g/dl (32-36); MEAN PLATELET VOLUME 8.8 fL (7.4-10.4); MONO % 13.1 %; NEUT % 67.2 %; PLATELET COUNT 316 K/uL (130-400); RED BLOOD COUNT 5.28 M/uL (4.2-5.4); WHITE BLOOD COUNT 11.74 K/uL (4.8-10.8)
[2017-01-24 14:34] LABS: BLOOD UREA NITROGEN 25 mg/dl (7-18); BUN/CREATININE RATIO 22.5 (10-20); CALCIUM 8.7 mg/dl (8.5-10.1); CARBON DIOXIDE 30 mmol/L (21-32); CHLORIDE 100 mmol/L (98-107); GLUCOSE 105 mg/dl (70-99); POTASSIUM 4.4 mmol/L (3.5-5.1); SODIUM 137 mmol/L (136-145)
[2017-01-24 14:40] LABS: CKMB/CK RATIO 4.7 (0-3.0)
--- NOTE | 2017-01-24 14:56 | DIAGNOSTIC IMAGING REPORT ---
CHEST ONE VIEW PORTABLE HISTORY: Atypical Chest Pain COMPARISON: Chest 11/23/2016. FINDINGS: The heart remains mildly enlarged. Left-sided dual-chamber pacemaker. No pleural effusions. No pneumothorax. No focal lung consolidations to suggest pneumonia. No evidence for pulmonary edema. IMPRESSION: No significant change compared to the prior study. No acute process. Electronically signed by: Phillip Arellano M.D. 01/24/2017 2:55 PM Dictated Date/Time: 01/24/2017 2:53 PM
[2017-01-24] MEDS ORDERED: ONDANSETRON INJ 2 MG/ML 2 ML VIAL IV PRN (16:45)
[2017-01-24] MEDS ORDERED: MoRPHine SULFATE 2 MG/ML CARP IV PRN (16:45)
[2017-01-24] MEDS ORDERED: POLYETHYLENE (MIRALAX) 17 GM PACK PO PRN (16:45)
[2017-01-24] MEDS ORDERED: NITROGLYCERIN 0.4 MG SL PER TAB CHARGE UT PRN (16:45)
[2017-01-24] MEDS ORDERED: MAGNESIUM HYDROXIDE SUSP 30 ML UDC PO PRN (16:45)
[2017-01-24] MEDS ORDERED: ACETAMINOPHEN 325 MG TAB PO PRN (16:45)
[2017-01-24] MEDS ORDERED: IV FLUIDS COMPLETED PRN (17:15)
[2017-01-24 17:45] VITALS: BP 157/69; PULSE 68; TEMP 36.8; O2SAT 98; Ht 170.2 cm; Wt 78.6 kg
--- NOTE | 2017-01-24 17:46 | HISTORY & PHYSICAL EXAMINATION ---
DATE OF ADMISSION: 01/24/2017 OBSERVATION REASON FOR OBSERVATION: Chest pain. ADMITTING DIAGNOSIS: Chest pain. HISTORY OF PRESENT ILLNESS: Ms. Harper is an 86-year-old female who suffers from paroxysmal aFib and sick sinus syndrome who underwent a permanent pacemaker implantation on November 22 and was discharged 11/23/2016. She had this done by Dr. Delarosa, she typically follows with Jak Dickinson in [facility]. Since that time, she has had this fullness in her throat, which has been persistent. The fullness in her throat is not made worse or better with exertion or position. She has no dysphagia or odynophagia. However, over the last few weeks, she has noted some dyspnea on exertion. With her dyspnea on exertion, her throat discomfort does not worsen in any way. She particularly noticed this to be worse as she climbed stairs today. The patient does not have any other associated symptoms except today when she climbed the stair she did vomit once. She has no other diaphoresis. She gets no shortness of breath at rest with this discomfort nor the discomfort worsened with exertion. In the Emergency Department, she was evaluated. She has a paced rhythm on EKG with a profound, probably 0.4 AR interval from atrial pacing to her ventricular right bundle branch block discharge. The atrial paced spike is near the end of the terminus of the T wave for QRS. Other than that, she has typically some melanotic stools, but she takes iron and she has been feeling she just does not have as much energy with this dyspnea on exertion. PAST MEDICAL HISTORY: For coronary disease with an CO in 1986 and 1999, the paroxysmal atrial fibrillation/sick sinus syndrome with permanent pacemaker, hypertension. 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 MEDICATIONS: Amiodarone listed in the computer is now 200 once a day, aspirin 81 a day, Lipitor 80 a day, vitamin D 2000 a day, isosorbide mononitrate 120 a day, Synthroid 88 mcg a day, magnesium oxide 400 at bedtime, metoprolol 50 b.i.d. this has recently been increased, nitro p.r.n., but she has not taken any most recently, Protonix 40 a day, Zantac 150 a day, Ultram 100 b.i.d. which she takes religiously for her PMR pain, iron 325 a day, Femara 2.5 a day and ramipril 10 a day. The ER doctor did state that nitroglycerin helped her pain, the patient refused that comment. SOCIAL HISTORY: The patient quit smoking 35 years ago, does not drink alcohol. She is accompanied by her daughter, her daughter helps manage most of her medications. FAMILY HISTORY: However, positive for coronary artery disease. REVIEW OF SYSTEMS: Ten systems were reviewed and are negative unless listed above. PHYSICAL EXAMINATION: GENERAL: She is a pleasant female. She is in no distress, but she claims her pain is still present. VITAL SIGNS: Her temperature is 36.6, her pulse is 64, respirations 21, BP is 134/69, O2 sat 96% on room air. HEENT: PERRL, EOMI. Oropharynx clear. NECK: Without lymphadenopathy. There is no JVD present. HEART: Regular, distant, with a systolic murmur heard best at the apex. LUNGS: Clear without wheezes or crackles. Good air movement. SPINE: Nontender. There is no CV angle tenderness. ABDOMEN: Normoactive bowel sounds, soft, nontender, nondistended, no organomegaly. No bruits. EXTREMITIES: Without cyanosis, clubbing or edema. NEUROLOGICALLY: She is awake, alert and appropriate. Cranial nerves II-XII are intact. Equal symmetrical strength and sensation in upper and lower extremities. SKIN: Only with changes of aging. No bruises or bleeding. LABORATORY AND IMAGING DATA: Has white count of 11.7, H\T\H 15 and 45, platelet count is 316. BUN and creatinine are 25 and 1.1. Her CK-MB is slightly elevated, but her normal CK normal troponin refutes that from being significant. Urinalysis is not collected. EKG as mentioned shows right bundle branch block with a prolonged AR interval. Chest x-ray is unremarkable. ASSESSMENT: An 86-year-old female here with throat discomfort and now exertional dyspnea after pacemaker implantation. PLAN: The patient will be observed in her monitored unit the pacemaker interrogation. Her amiodarone after her daughter double checked her medications is now 200 once a day, this will be maintained with her metoprolol 50 b.i.d., isosorbide 120. This seems to be more likely related to the fact that her rate not be accelerating with demand and her throat, chest discomfort may be resultant of some irritation with the procedure. Cardiology will be consulted to determine risk stratification for ischemia is warranted in the future. Regarding her other medications with regard to her GERD, we will continue her H2 and proton pump inhibitor. Regarding hypothyroidism, this appears clinically stable, we will maintain this at ADA. TSH was last checked in our hospital system in 2014, one will be added for the morning. Regarding her polymyalgia rheumatica pain, she requests her Ultram be given scheduled and this will be done. DVT prevention is going to be based on heparin in case a procedure would be warranted. NIK
[2017-01-24 18:14] LABS: PROTHROMBIN TIME (PATIENT) 10.7 SECONDS (9.0-12.0)
--- NOTE | 2017-01-24 18:26 | EMERGENCY ROOM VISIT NOTE ---
History Report prepared by Maday: Oracio Silva Under the Supervision of: Dr. Panfilo Genao D.O. First contact with patient: 13:40 Stated Complaint: CHEST PAIN History of Present Illness The patient is an 86 year old female who presents to the Emergency Room via EMS with complaints of worsening chest pain that started prior to arrival today. The patient had a pacemaker put in here in October for atrial fibrillation, and she says that ever since then, she has had intermittent chest pressure. However , this pressure worsened today. The patient notes that the pain usually starts around her throat, and then works down to her chest during the day. She describes the throat pain as a lump in her throat. She states that her Tramadol helps with the pain. The pain is not worsened with anything in particular. She says that yesterday, she got short of breath for the first time while walking up steps. The patient denies any calf swelling. She is on a daily regiment of Aspirin, per EMS. EMS states that the patient has started to have a bit of dizziness over the past few days. Source of History: patient, EMS Onset: Prior to arrival today Position: chest Quality: pressure Timing: worsening Modifying Factors (Relieving): other (Tramadol) Associated Symptoms: + SOB Note: Associated symptoms: Throat pain. Dizziness over past few days. Denies calf swelling. Review of Systems See HPI for pertinent positives & negatives. A total of 10 systems reviewed and were otherwise negative. 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 (21) Polymyalgia Rheumatica (22) Right flank pain (23) Rt flank pain (24) Sciatica (25) Sciatica (26) Spinal Stenosis, Lumbar Reg, W/Out Neurogenic Claudication (27) Superficial thrombophlebitis (28) Superficial thrombophlebitis (29) Symptoms involving urinary system (30) Symptoms involving urinary system (31) Syncope (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 Surgical Problems: (1) Cataract Extraction Status (2) History of cardiac radiofrequency ablation (3) History of esophagogastroduodenoscopy (4) History of partial mastectomy (5) Percutaneous Translum Coron Angioplasty Status (6) Tubal Ligation Status Family History FHx: heart disease Hypertension Social History Smoking Status: Never Smoker Alcohol Use: none Drug Use: none Marital Status: Housing Status: lives with family Occupation Status: retired Current/Historical Medications Scheduled Amiodarone HCl (Amiodarone HCl), 400 MG PO BID Aspirin (Aspirin Ec), 81 MG PO DAILY Atorvastatin Calcium (Lipitor), 80 MG PO DAILY Cholecalciferol (Vitamin D 1000 Unit), 2,000 INTER.UNIT PO DAILY Ferrous Sulfate (Iron), 1 TAB PO DAILY Isosorbide Mononitrate Ext Rel (Imdur Ext Rel), 120 MG PO QAM Letrozole (Femara), 2.5 MG PO DAILY Levothyroxine Sodium (Synthroid), 88 MCG PO DAILY Magnesium Oxide (Mag-Ox), 400 MG PO HS Metoprolol Succinate (Metoprolol Succinate ER), 50 MG PO BID Pantoprazole (Protonix), 40 MG PO QAM Ramipril (Altace), 5 MG PO DAILY Ranitidine (Zantac), 150 MG PO QAM Tramadol Hcl (Ultram), 100 MG PO BID Scheduled PRN Nitroglycerin (Nitrostat), 0.4 MG UT UD PRN for Chest Pain Allergies Coded Allergies: Adhesives (Verified Allergy, Intermediate, RASH, 01/24/17) Latex (Verified Allergy, Unknown, SKIN IRRITATION, 01/24/17) Physical Exam Vital Signs Date Time Temp Pulse Resp B/P Pulse Ox O2 Delivery O2 Flow Rate FiO2 01/24/17 17:12 78 18 98 01/24/17 17:01 108/80 01/24/17 16:42 60 19 97 01/24/17 16:30 135/84 01/24/17 16:12 59 14 96 01/24/17 16:00 129/56 01/24/17 15:42 60 20 94 01/24/17 15:30 137/63 01/24/17 15:12 61 20 96 01/24/17 15:07 64 21 96 01/24/17 15:00 134/69 01/24/17 14:37 60 17 96 01/24/17 14:31 61 16 139/70 93 Room Air 01/24/17 14:30 139/70 01/24/17 14:22 139/66 01/24/17 14:20 61 16 139/66 94 Room Air 01/24/17 14:10 134/73 01/24/17 14:07 60 26 97 01/24/17 13:46 73 01/24/17 13:45 94 Room Air 01/24/17 13:45 94 Room Air 01/24/17 13:45 36.6 79 20 181/98 94 Room Air 01/24/17 13:42 181/98 Physical Exam GENERAL: sitting up in bed, no acute distress, disheveled EYE EXAM: normal conjunctiva OROPHARYNX: no exudate, no erythema, lips, buccal mucosa, and tongue normal and mucous membranes are moist NECK: supple, no nuchal rigidity, no adenopathy, non-tender LUNGS: Clear to auscultation. Normal chest wall mechanics HEART: no murmurs, S1 normal and S2 normal. Pacemaker located in left upper chest. ABDOMEN: abdomen soft, non-tender, normo-active bowel sounds, no masses, no rebound or guarding. BACK: Back is symmetrical on inspection and there is no deformity, no midline tenderness, no CVA tenderness. SKIN: no rashes and no bruising UPPER EXTREMITIES: upper extremities are grossly normal. LOWER EXTREMITIES: No pitting edema. Calves equal bilaterally. NEURO EXAM: Normal sensorium, cranial nerves II-XII grossly intact, normal speech, no gross weakness of arms, no gross weakness of legs. Medical Decision & Procedures ER Provider Diagnostic Interpretation: Xray results per the radiologist and my interpretation. CHEST ONE VIEW PORTABLE HISTORY: Atypical Chest Pain COMPARISON: Chest 11/23/2016. FINDINGS: The heart remains mildly enlarged. Left-sided dual-chamber pacemaker. No pleural effusions. No pneumothorax. No focal lung consolidations to suggest pneumonia. No evidence for pulmonary edema. IMPRESSION: No significant change compared to the prior study. No acute process. Electronically signed by: Phillip Arellano M.D. 01/24/2017 2:55 PM Dictated Date/Time: 01/24/2017 2:53 PM Laboratory Results 01/24/17 14:10 Red Blood Count 5.28, Mean Corpuscular Volume 85.2, Mean Corpuscular Hemoglobin 29.5, Mean Corpuscular Hemoglobin Concent 34.7, Mean Platelet Volume 8.8, Neutrophils (%) (Auto) 67.2, Lymphocytes (%) (Auto) 17.7, Monocytes (%) (Auto) 13.1, Eosinophils (%) (Auto) 1.1, Basophils (%) (Auto) 0.3, Neutrophils # (Auto ) 7.89, Lymphocytes # (Auto) 2.08, Monocytes # (Auto) 1.54, Eosinophils # (Auto ) 0.13, Basophils # (Auto) 0.03 01/24/17 14:10 Test 01/24/17 14:10 White Blood Count 11.74 K/uL (4.8-10.8) Red Blood Count 5.28 M/uL (4.2-5.4) Hemoglobin 15.6 g/dL (12.0-16.0) Hematocrit 45.0 % (37-47) Mean Corpuscular Volume 85.2 fL (80-100) Mean Corpuscular Hemoglobin 29.5 pg (25-34) Mean Corpuscular Hemoglobin Concent 34.7 g/dl (32-36) Platelet Count 316 K/uL (130-400) Mean Platelet Volume 8.8 fL (7.4-10.4) Neutrophils (%) (Auto) 67.2 % Lymphocytes (%) (Auto) 17.7 % Monocytes (%) (Auto) 13.1 % Eosinophils (%) (Auto) 1.1 % Basophils (%) (Auto) 0.3 % Neutrophils # (Auto) 7.89 K/uL (1.4-6.5) Lymphocytes # (Auto) 2.08 K/uL (1.2-3.4) Monocytes # (Auto) 1.54 K/uL (0.11-0.59) Eosinophils # (Auto) 0.13 K/uL (0-0.5) Basophils # (Auto) 0.03 K/uL (0-0.2) RDW Standard Deviation 42.1 fL (36.4-46.3) RDW Coefficient of Variation 13.7 % (11.5-14.5) Immature Granulocyte % (Auto) 0.6 % Immature Granulocyte # (Auto) 0.07 K/uL (0.00-0.02) Prothrombin Time 10.7 SECONDS (9.0-12.0) Prothromb Time International Ratio 1.0 (0.9-1.1) Anion Gap 7.0 mmol/L (3-11) Est Creatinine Clear Calc Drug Dose 40.4 ml/min Estimated GFR () 52.6 Estimated GFR (Non- 45.4 BUN/Creatinine Ratio 22.5 (10-20) Calcium Level 8.7 mg/dl (8.5-10.1) Total Bilirubin 0.5 mg/dl (0.2-1) Direct Bilirubin 0.1 mg/dl (0-0.2) Aspartate Amino Transf (AST/SGOT) 26 U/L (15-37) Alanine Aminotransferase (ALT/SGPT) 50 U/L (12-78) Alkaline Phosphatase 76 U/L (45-117) Total Creatine Kinase 59 U/L (26-192) Creatine Kinase MB 2.8 ng/ml (0.5-3.6) Creatine Kinase MB Ratio 4.7 (0-3.0) Troponin I < 0.015 ng/ml (0-0.045) Total Protein 6.8 gm/dl (6.4-8.2) Albumin 3.3 gm/dl (3.4-5.0) Lipase 248 U/L (73-393) Laboratory results per my review. Medications Administered Medications (Trade) Dose Ordered Sig/Cholo Route Start Time Stop Time Status Last Admin Dose Admin Aspirin (Aspirin Chew) 324 mg NOW STAT PO 01/24/17 13:55 01/24/17 13:56 DC 01/24/17 14:19 324 MG Nitroglycerin (Nitrostat Tab) 0.4 mg Q5M PRN SL 01/24/17 14:00 02/23/17 13:59 01/24/17 14:18 0.4 MG ECG Indication: chest pain Rate (beats per minute): 78 Rhythm: other (atrial paced) Findings: left axis deviation, other (RBBB) Change: no significant change (from Nov 23 2016) ED Course ED COURSE: Vital signs were reviewed and showed normal vitals. The patients medical record was reviewed The above diagnostic studies were performed and reviewed. ED treatments and interventions as stated above. 1345: The patient was evaluated in room B3B. A complete history and physical examination was performed. 1355: Ordered Aspirin Chew 324 mg PO. 1400: Ordered Nitrostat Tab 0.4 mg SL PRN. 1500: The patient's chest pain went away after the nitro. 1623: I reviewed the patient's case with Dr. Pushpa RAMSEY hospitalist. He will evaluate the patient for further management. 1625: Upon reevaluation, the patient is sitting up in bed. I discussed my findings with the patient and she understands and agrees with the treatment plan. Based on the patients age, coexisting illnesses, exam and lab findings the decision to treat as an inpatient was made. The patient remained stable while under my care. The patient will be evaluated for further management. Medical Decision Differential diagnoses includes but is not limited to acute coronary syndrome, myocardial infarction, pericarditis, pulmonary embolus, aortic dissection, pneumonia, pneumothorax, musculoskeletal, shingles, esophageal. Patient is an 86 her old female who presents the ER for precordial chest pain. This has been becoming worse over the past several weeks. 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 Labs show no significant leukocytosis. BMP along with troponin was unremarkable. LFTs and bilirubin were negative. Interrogation of the pacer revealed no acute pathology. EKG was paced. Chest x -ray was unremarkable. Pain resolved with nitroglycerin and aspirin. Case was discussed with internal medicine and she was observed from a cardiac standpoint. Consults Time Called: 1619 Consulting Physician: Dr. Pushpa colunga Returned Call: 1622 I reviewed the patient's case with Dr. Pushpa RAMSEY hospitalcarmine. He will evaluate the patient for further management. Impression Primary Impression: Precordial chest pain Scribe Attestation The scribe's documentation has been prepared under my direction and personally reviewed by me in its entirety. I confirm that the note above accurately reflects all work, treatment, procedures, and medical decision making performed by me. Departure Information Dispostion Being Evaluated By Hospitalist Rory Mora M.D. (PCP)
[2017-01-24] MEDS ORDERED: INFLUENZA ADMINISTRATION CHARGE ONE (18:45)
[2017-01-24] MEDS ORDERED: PNEUMOCOCCAL ADMINISTRATION CHARGE ONE (18:45)
[2017-01-24] MEDS ORDERED: NURSING VERBAL MED ORDER ONE (20:00)
[2017-01-24] MEDS: METOPROLOL TARTRATE 50 MG TAB PO SCH (20:01)
[2017-01-24] MEDS: HEPARIN SOD 5000 UNIT/0.5 ML CARP SQ SCH (20:02)
[2017-01-24 20:08] VITALS: BP 158/72; PULSE 70; TEMP 36.7; O2SAT 95
[2017-01-24] MEDS ORDERED: TRAMADOL HCL 50 MG TAB PO ONE (20:15)
[2017-01-24] MEDS ORDERED: METOPROLOL SUCC 50MG EXT REL TAB PO SCH (21:00)
[2017-01-24] MEDS ORDERED: TRAMADOL HCL 50 MG TAB PO SCH (21:00)
[2017-01-24] MEDS ORDERED: MAGNESIUM OXIDE 400 MG TAB PO SCH (21:00)
[2017-01-24 23:32] VITALS: BP 161/69; PULSE 60; TEMP 36.4; O2SAT 95
[2017-01-25 03:32] VITALS: BP 170/83; PULSE 66; TEMP 36.7; O2SAT 98
[2017-01-25] MEDS ORDERED: LEVOTHYROXINE 88 MCG TAB PO SCH (06:00)
[2017-01-25 06:59] LABS: HEMATOCRIT 47.8 % (37-47); MEAN CELL VOLUME 88.4 fL (80-100); MEAN CORPUSCULAR HEMOGLOBIN 30.3 pg (25-34); MEAN CORPUSCULAR HGB CONC 34.3 g/dl (32-36); PLATELET COUNT 287 K/uL (130-400); RED BLOOD COUNT 5.41 M/uL (4.2-5.4); WHITE BLOOD COUNT 9.16 K/uL (4.8-10.8)
[2017-01-25 07:27] VITALS: BP 154/84; PULSE 77; TEMP 36.5; O2SAT 97
[2017-01-25 07:31] LABS: BLOOD UREA NITROGEN 18 mg/dl (7-18); BUN/CREATININE RATIO 15.1 (10-20); CALCIUM 8.9 mg/dl (8.5-10.1); CARBON DIOXIDE 32 mmol/L (21-32); CHLORIDE 103 mmol/L (98-107); GLUCOSE 82 mg/dl (70-99); POTASSIUM 4.3 mmol/L (3.5-5.1); SODIUM 140 mmol/L (136-145)
[2017-01-25] MEDS ORDERED: PNEUMOCOCCAL POLYSACCHARIDES 25 MCG/0.5 ML VIAL/SYR IM. ONE (08:00)
[2017-01-25] MEDS ORDERED: INFLUENZA VIRUS QUAD VACCINE 0.5 ML SYR IM. ONE (08:00)
[2017-01-25] MEDS: METOPROLOL TARTRATE 50 MG TAB PO SCH (08:34)
[2017-01-25] MEDS: HEPARIN SOD 5000 UNIT/0.5 ML CARP SQ SCH (08:43)
[2017-01-25] MEDS ORDERED: NURSING VERBAL MED ORDER ONE (08:45)
[2017-01-25] MEDS ORDERED: ISOSORBIDE MONONITRATE 60 MG TABCR PO SCH (09:00)
[2017-01-25] MEDS ORDERED: ATORVASTATIN 40 MG TAB PO SCH ×2 (09:00→21:00)
[2017-01-25] MEDS ORDERED: ASPIRIN 81 MG ECTAB PO SCH (09:00)
[2017-01-25] MEDS ORDERED: CHOLECALCIFEROL 1000 INTER.UNIT TAB PO SCH (09:00)
[2017-01-25] MEDS ORDERED: ENALAPRIL MALEATE 5 MG TAB PO SCH (09:00)
[2017-01-25] MEDS ORDERED: AMIODARONE 200 MG TAB PO SCH (09:00)
[2017-01-25] MEDS ORDERED: RANITIDINE HCL 150 MG TAB PO SCH (09:00)
[2017-01-25] MEDS ORDERED: LETROZOLE 2.5 MG TAB PO SCH (09:00)
[2017-01-25] MEDS ORDERED: FERROUS SULFATE 325 MG TAB PO SCH (09:00)
[2017-01-25] MEDS ORDERED: PANTOprazole SOD 40 MG TAB PO SCH (09:00)
--- NOTE | 2017-01-25 11:33 | Cardiology Consultation ---
Cardiology Consultation Date of Consultation: Jan 25, 2017 Requesting Physician: Pushpa Attending Network Security Analyst: Nehemiah (Jak Dickinson PA-C) History of Present Illness Mrs. Harper is an 86 year old female who presented to the [facility] ER on 01/24/2017 with a chief complaint of chest pain. The patient describes to the undersigned "a feeling in my chest and throat" that has been present since the pacemaker implantation on November 22, 2016. She describes a sensation of tachypalpitations as soon as she gets up and starts moving as well as increased exertional dyspnea. She notes that it "takes a long time for my breathing to get back to normal." She describes two bouts of dyspnea, one last while carrying a bag of groceries back to the car and a second episode when walking up the cellar steps with her brother. She notes that this leads to increased anxiety, developing "so much pressure" in the upper chest and nausea yesterday around noon. Tramadol helps the sensation in the upper chest and throat in approximately one hour. Admission CXR showed no significant change when compared to the prior study of , as per Dr. Arellano. EKG on presentation (24-JAN-2017 13:41:44) revealed atrial-paced rhythm with prolonged AV conduction, left axis deviation, right bundle branch block. EKG this morning (25-JAN-2017 06:27:02) revealed an atrial-paced rhythm with prolonged AV conduction, left axis deviation, right bundle branch block. Troponin's are negative x 3. The patient notes device interrogation in the ER by an unknown provider. This information is not available for review at this time. No resting symptoms. No nocturnal issues. No cough, orthopnea, PND, or increased edema. No lightheadedness, dizziness, near syncope, or syncope. Denies fevers or chills. Denies change in appetite. Denies dysuria or hematuria. Chronic constipation, aided by Miralax, without recent change. Mrs. Haprer was seen by the undersigned last on 01/12/2017 after device interrogation demonstrated increased RV lead thresholds. A PA and lateral chest x-ray was obtained and compared to a chest x-ray performed at [facility] on November 25, 2016. There may have been some slight movement to both atrial and ventricular lead though overall the lead positions seemed to be relatively stable. She noted tachypalpitations at that time, unsupported on examination and device interrogation. No atrial fibrillation was observed. Heart rates during the night were 60 bpm with average heart rates during the day in the 70 to 80 beat per minute range. She noted an occasional feeling of food getting stuck when eating too fast. No angina. Stable exertional dyspnea. No sublingual nitroglycerin use. (Jak Dickinson PA-C) History Past Medical History: Multivessel ASCVD Angioplasty of the RCA in 1986. 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 Catheterization last performed on 06/29/04, demonstrating moderate disease of the LCX and LAD with a 60% narrowing of the OM, 40% narrowing of the LAD, and an 80% distal RCA stenosis. Chronic Class II angina pectoris. DSE in 2006 and was negative for ischemia though notable for induction of atrial arrhythmias. 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 Breast biopsy in 2008 and 2012. Vaginal polypectomy. Tubal ligation. Family History: Mother with an TN at the age of 82. Father with lung cancer in his 60's. Social History: Prior 30 pack-year smoking history having quit circa 1987. No significant alcohol use. No illegal drug use. Recently . Four grown children. (Jak Dickinson PA-C) Review Of Systems Complete review of systems is as stated above, negative, or noncontributory. (Jak Dickinson PA-C) Allergies Coded Allergies: Adhesives (Verified Allergy, Intermediate, RASH, 01/24/17) Latex (Verified Allergy, Unknown, SKIN IRRITATION, 01/24/17) Medications Reported Home Medications Medications Dose Route/Sig Max Daily Dose Days Date Category Dose Instructions Vitamin D 1000 Unit (Cholecalciferol) 1,000 Unit Cap 2,000 Inter.unit PO DAILY 11/23/16 Reported Amiodarone HCl 200 Mg Tab 400 Mg PO BID 14 11/23/16 Rx take 400mg 2x a day by mouth for 2 weeks then decrease to 200mg daily Zantac (Ranitidine HCl) 150 Mg Tab 150 Mg PO QAM 11/22/16 Reported Aspirin Ec (Aspirin) 81 Mg Tab 81 Mg PO DAILY 11/22/16 Reported Ultram (Tramadol Hcl) 50 Mg Tab 100 Mg PO BID 11/22/16 Reported Metoprolol Succinate ER (Metoprolol Succinate) 25 Mg Tabcr 50 Mg PO BID 11/22/16 Reported Imdur Ext Rel (Isosorbide Mononitrate) 120 Mg Ertab 120 Mg PO QAM 06/22/16 Reported Iron (Ferrous Sulfate) 325 Mg Tab 1 Tab PO DAILY 06/22/16 Reported Femara (Letrozole) 2.5 Mg Tab 2.5 Mg PO DAILY 12/03/13 Reported Protonix (Pantoprazole Sodium) 40 Mg Tab 40 Mg PO QAM 08/28/13 Reported Synthroid (Levothyroxine Sodium) 88 Mcg Tab 88 Mcg PO DAILY 08/28/13 Reported Altace (Ramipril) 10 Mg Cap 5 Mg PO DAILY 02/28/13 Reported Lipitor (Atorvastatin Calcium) 80 Mg Tab 80 Mg PO DAILY 02/28/13 Reported Nitrostat (Nitroglycerin) 0.4 Mg Sub 0.4 Mg UT UD PRN 12/08/[address] ONE TABLET UNDER THE TONGUE EVERY 5 MINUTES FOR UP TO 3 DOSES IF NEEDED FOR CHEST PAIN. Mag-Ox (Magnesium Oxide) 400 Mg Tab 400 Mg PO HS 06/17/11 Reported (Jak Dickinson PA-C) Physical Exam Vital Signs (Last 8hrs): Last 8 Hrs Date Time Temp Pulse Resp B/P Pulse Ox O2 Delivery O2 Flow Rate FiO2 01/25/17 08:00 Room Air 01/25/17 07:27 36.5 77 18 154/84 97 Room Air 01/25/17 04:00 Room Air 01/25/17 03:32 36.7 66 18 170/83 98 Room Air General: A&Ox3. NAD. HEENT: Normocephalic. PER. Right carotid bruit. No JVD. No HJR Chest: The left subclavian pacemaker pocket is clean, dry, and intact. Heart: RRR, 60 bpm. Grade II/ systolic ejection murmur. No diastolic murmur. No rub. Lungs: Clear to auscultation. Abdomen: Obese. +BS. Soft. Non-tender. No masses. No CVA tenderness. Extremities: Radial pulses are normal bilaterally. There are considerable varicosities in both lower extremities. No significant lower extremity peripheral edema. Neuro: No focal deficits. Psychiatric: Normal affect. (Jak Dickinson, AYAAN) Data Last 24 Hours Test 01/24/17 14:10 01/24/17 22:25 01/25/17 05:42 White Blood Count 11.74 K/uL 9.16 K/uL Red Blood Count 5.28 M/uL 5.41 M/uL Hemoglobin 15.6 g/dL 16.4 g/dL Hematocrit 45.0 % 47.8 % Mean Corpuscular Volume 85.2 fL 88.4 fL Mean Corpuscular Hemoglobin 29.5 pg 30.3 pg Mean Corpuscular Hemoglobin Concent 34.7 g/dl 34.3 g/dl Platelet Count 316 K/uL 287 K/uL Mean Platelet Volume 8.8 fL 9.0 fL Neutrophils (%) (Auto) 67.2 % Lymphocytes (%) (Auto) 17.7 % Monocytes (%) (Auto) 13.1 % Eosinophils (%) (Auto) 1.1 % Basophils (%) (Auto) 0.3 % Neutrophils # (Auto) 7.89 K/uL Lymphocytes # (Auto) 2.08 K/uL Monocytes # (Auto) 1.54 K/uL Eosinophils # (Auto) 0.13 K/uL Basophils # (Auto) 0.03 K/uL RDW Standard Deviation 42.1 fL 45.3 fL RDW Coefficient of Variation 13.7 % 14.0 % Immature Granulocyte % (Auto) 0.6 % Immature Granulocyte # (Auto) 0.07 K/uL Prothrombin Time 10.7 SECONDS Prothromb Time International Ratio 1.0 Sodium Level 137 mmol/L 140 mmol/L Potassium Level 4.4 mmol/L 4.3 mmol/L Chloride Level 100 mmol/L 103 mmol/L Carbon Dioxide Level 30 mmol/L 32 mmol/L Anion Gap 7.0 mmol/L 5.0 mmol/L Blood Urea Nitrogen 25 mg/dl 18 mg/dl Creatinine 1.10 mg/dl 1.20 mg/dl Est Creatinine Clear Calc Drug Dose 40.4 ml/min 36.3 ml/min Estimated GFR () 52.6 47.4 Estimated GFR (Non- 45.4 40.9 BUN/Creatinine Ratio 22.5 15.1 Random Glucose 105 mg/dl 82 mg/dl Calcium Level 8.7 mg/dl 8.9 mg/dl Total Bilirubin 0.5 mg/dl Direct Bilirubin 0.1 mg/dl Aspartate Amino Transf (AST/SGOT) 26 U/L Alanine Aminotransferase (ALT/SGPT) 50 U/L Alkaline Phosphatase 76 U/L Total Creatine Kinase 59 U/L Creatine Kinase MB 2.8 ng/ml Creatine Kinase MB Ratio 4.7 Troponin I < 0.015 ng/ml < 0.015 ng/ml < 0.015 ng/ml Total Protein 6.8 gm/dl Albumin 3.3 gm/dl Lipase 248 U/L Thyroid Stimulating Hormone (TSH) 1.200 uIu/ml Telemetry reviewed: Atrial paced ventricular sensed rhythm. No arrhythmias. (Jak Dickinson PA-C) Assessment & Plan 86-year-old female admitted with throat/upper chest discomfort, palpitations, and exertional dyspnea suggestive of an inappropriate activity rate response setting on her pacemaker ([employer]). Discomfort is atypical of angina with EKG' s and cardiac enzymes not reflective of an acute coronary syndrome. RECOMMENDATIONS: Resting echocardiogram Pacemaker interrogation and reprogramming Continue medications as prescribed; amiodarone 200 mg/day, metoprolol 50 mg twice a day Further recommendations pending the above, evaluation by Dr. Cerna, and her ongoing hospitalization. (Jak Dickinson PA-C) Cardiology Attending Physician: Patient seen and examined at the bedside. Complains of intermittent palpitations described as 'heart pounding' and associated 'heaviness'. States symptoms present since pacemaker implant. Denies exertion CP or SOB. No syncope or near syncope. Denies orthopnea or PND. Telemetry demonstrates atrial paced rhythm. PE: VSS. Gen: NAD, AAO x 3. Neck: no JVD. Heart: Pacemaker site well healed. Regular rhyhtm. No murmur. Lungs: clear B/L, No R/R/W. Ext: no edema. A/P: Agree with above AYAAN history, physical exam, assessment and plan. PPM interrogation and 2D echocardiogram pending. Further recommendations pending review of result. Yandel Cerna DO, FACC (Yosef Cerna, DO)
[2017-01-25 11:59] VITALS: BP 97/59; PULSE 83; TEMP 36.2; O2SAT 94
[2017-01-25] MEDS ORDERED: TRAMADOL HCL 50 MG TAB PO SCH (12:00)
[2017-01-25] MEDS ORDERED: PERFLUTREN LIPID MICROSPHERE (DEFINITY) IV ONE (13:02)
[2017-01-25 13:33] VITALS: BP 97/59; PULSE 83; TEMP 36.2; O2SAT 94
--- NOTE | 2017-01-25 14:44 | Discharge Instructions ---
Discharge Instructions Date of Service Jan 25, 2017. Admission Reason for Admission: Chest Pain Discharge Discharge Diagnosis / Problem: Chest pressure and palpitations Discharge Goals Goal(s): Improve function, Increase independence Activity Recommendations Activity Limitations: resume your previous activity Lifting Limitations: none Exercise/Sports Limitations: as tolerated Shower/Bathe: no limitations Driving or Machine Use: no limitations . Instructions / Follow-Up Instructions / Follow-Up Medications: no changes made In summary, you were ruled out for cardiac ischemia with normal enzymes and normal paced EKG Your echocardiogram was normal. Your pacer was interrogated and is working well but settings adjusted slightly to see if symptoms improve No further recommendations from cardiology FOLLOW UP - make appointment with [facility] cardiology if you continue to have these issues Current Hospital Diet Patient's current hospital diet: AHA Diet (Heart Healthy) Discharge Diet Recommended Diet: AHA Diet (Heart Healthy) Procedures Procedures Performed: Echocardiogram Pacer interrogation Pending Studies Studies pending at discharge: no Laboratory Results Last Resulted CBC 01/25/17 05:42 Last Resulted BMP 01/25/17 05:42 Medical Emergencies . Who to Call and When: Medical Emergencies: If at any time you feel your situation is an emergency, please call 911 immediately. . Non-Emergent Contact Non-Emergency issues call your: Primary Care Provider, Front Desk Team Member Call Non-Emergent contact if: you have a fever, you have any medication questions . . "Provider Documentation" section prepared by Eduardo Navas. VTE Core Measure Inpt VTE Proph given/why not?: Unfractionated heparin SQ
[2017-01-25 15:27] VITALS: BP 110/65; PULSE 51; TEMP 36.5; O2SAT 96
--- NOTE | 2017-01-25 16:15 | ECHOCARDIOGRAM REPORT ---
*NOTICE TO RECEIVING [facility] This information is strictly Confidential and protected under [place] law. [place] law prohibits you from making any further disclosure of this information unless further disclosure is expressly permitted by the written consent of the person to whom it pertains or is authorized by law. A general authorization for the release of medical or other information is not sufficient for this purpose. Hospital accepts no responsibility if the information is made available to any other person, INCLUDING THE PATIENT. Interpretation Summary * Name: ENRIKE HERMOSILLO Study Date: 01/25/2017 12:31 PM BP: 97/59 mmHg * Patient Location: C.2T\S\S234\S\1 HR: 83 * : 1930 (M/d/yyy) Gender: Female Height: 67 in * Age: 86 yrs Ethnicity: [place] Weight: 173 lb * Ordering Physician: Jak Dickinson * Performed By: Dee Benítez * * Reason For Study: CHEST PAIN * BSA: 1.9 m2 * The study was technically adequate. * Compared to prior study, there is no significant change. * -- Conclusions -- * The left ventricle is hyperdynamic. * Ejection Fraction = 65-70%. * Aortic valve sclerosis moderate, without significant aortic valvular stenosis. * Mild aortic regurgitation. * There is severe mitral annular calcification. * The mitral valve chordae are thickened and/or calcified. * There is mild mitral regurgitation. * There is no pericardial effusion. Procedure Details * A complete two-dimensional transthoracic echocardiogram was performed (2D, M-mode, Doppler and color flow Doppler). * A contrast injection of Definity was performed to improve assessment of LV function. * Contrast was injected into an intravenous site in the left arm. * One vial of Definity ultrasound contrast was diluted in normal saline to a total volume of 10 ml. A total of '3' ml of solution was administered during imaging. * Lot # [id number] of Definity utilized for procedure. * Expiration date 02/07. * The attending nurse who injected the contrast agent was HARLEY TOVAR RN. Left Ventricle * The left ventricle is normal in size. * There is no thrombus. * There is normal left ventricular wall thickness. * Ejection Fraction = 65-70%. * The left ventricle is hyperdynamic. * The left ventricular wall motion is normal. Right Ventricle * The right ventricle is normal size. * There is a pacemaker lead in the right ventricle. * The right ventricular systolic function is normal as assessed by tricuspid annular plane systolic excursion (TAPSE) (normal >1.5 cm). Atria * The left atrial size is normal. * Right atrial size is normal. * There is no evidence of atrial septal defect, but resolution does not allow assessment for a patent foramen ovale. Mitral Valve * The mitral valve leaflets appear thickened, but open well. * There is severe mitral annular calcification. * The mitral valve chordae are thickened and/or calcified. * There is no mitral valve stenosis. * There is mild mitral regurgitation. Tricuspid Valve * The tricuspid valve is normal. * There is no tricuspid stenosis. * There is trace tricuspid regurgitation. Aortic Valve * The aortic valve is trileaflet. * Aortic valve sclerosis moderate, without significant aortic valvular stenosis. * Aortic stenosis is absent. * Mild aortic regurgitation. Pulmonic Valve * The pulmonary valve is not well seen, but the Doppler examination is normal without significant regurgitation or stenosis. Great Vessels * The aortic root and proximal ascending aorta are normal sized. Pericardium/Pleural * There is no pericardial effusion. Great Vessels * Normal inferior vena cava diameter and respiratory variation suggests normal central venous pressure. Left Ventricular Diastolic Function * Diastolic dysfunction, Grade II (pseudonormalization pattern). MMode 2D Measurements and Calculations IVSd 1.2 cm IVSs 2.1 cm LVIDd 3.8 cm LVIDs 2.3 cm LVPWd 1.1 cm LVPWs 2.2 cm IVS/LVPW 1.0 FS 40.1 % EDV(Teich) 62.7 ml ESV(Teich) 17.9 ml EF(Teich) 71.5 % EDV(cubed) 55.7 ml ESV(cubed) 12.0 ml EF(cubed) 78.5 % % IVS thick 82.2 % % LVPW thick 88.5 % LV mass(C)d 146.3 grams LV mass(C)dI 77.0 grams/m\S\2 LV mass(C)s 227.4 grams LV mass(C)sI 119.6 grams/m\S\2 CO(Teich) 2.2 l/min CI(Teich) 1.2 l/min/m\S\2 SV(Teich) 44.8 ml SI(Teich) 23.6 ml/m\S\2 CO(cubed) 2.2 l/min CI(cubed) 1.1 l/min/m\S\2 SV(cubed) 43.7 ml SI(cubed) 23.0 ml/m\S\2 ACS 0.82 cm asc Aorta Diam 3.6 cm LVOT diam 1.9 cm LVOT area 2.9 cm\S\2 LVAd ap4 30.3 cm\S\2 LVLd ap4 8.2 cm EDV(MOD-sp4) 92.0 ml LVAs ap4 15.7 cm\S\2 LVLs ap4 7.1 cm ESV(MOD-sp4) 29.0 ml EF(MOD-sp4) 68.5 % LVAd ap2 24.1 cm\S\2 LVLd ap2 7.4 cm EDV(MOD-sp2) 65.0 ml LVAs ap2 12.6 cm\S\2 LVLs ap2 6.1 cm ESV(MOD-sp2) 22.0 ml EF(MOD-sp2) 66.2 % CO(MOD-sp4) 3.2 l/min CI(MOD-sp4) 1.7 l/min/m\S\2 SV(MOD-sp4) 63.0 ml SI(MOD-sp4) 33.1 ml/m\S\2 CO(MOD-sp2) 2.2 l/min CI(MOD-sp2) 1.1 l/min/m\S\2 SV(MOD-sp2) 43.0 ml SI(MOD-sp2) 22.6 ml/m\S\2 Doppler Measurements and Calculations MV E max tez 84.4 cm/sec MV A max tez 110.6 cm/sec MV E/A 0.76 MV dec time 0.36 sec Ao V2 max 148.6 cm/sec Ao max PG 8.8 mmHg Ao max PG (full) 2.6 mmHg SHANNEN(V,A) 2.5 cm\S\2 SHANNEN(V,D) 2.5 cm\S\2 AI max tez 394.5 cm/sec AI max PG 62.3 mmHg AI dec slope 151.9 cm/sec\S\2 AI P1/2t 760.6 msec LV V1 max PG 6.2 mmHg LV V1 max 124.9 cm/sec MR max tez 248.5 cm/sec MR max PG 31.8 mmHg MR mean tez 64.7 cm/sec MR mean PG 2.0 mmHg MR VTI 59.6 cm PA V2 max 89.3 cm/sec PA max PG 3.2 mmHg PI end-d tez 118.1 cm/sec TR max tez 232.8 cm/sec
--- NOTE | 2017-01-26 08:29 | Discharge Summary ---
Discharge Summary Date of Service Jan 26, 2017. Discharge Summary Admission Date: Jan 24, 2017 at 16:42 Discharge Date: Jan 25, 2017 Discharge Disposition: Home Principal Diagnosis: Chest pressure Problems/Secondary Diagnoses: (1) Anxiety State Nos Status: Chronic (2) Atrial fibrillation Status: Chronic (3) Coronary artery disease Status: Chronic (4) Esophageal Reflux Status: Chronic (5) Heart disease Status: Chronic (6) HTN (hypertension) Status: Chronic (7) Hyperlipidemia Status: Chronic (8) Hypothyroidism Nos Status: Chronic (9) Polymyalgia Rheumatica Status: Chronic (10) Spinal Stenosis, Lumbar Reg, W/Out Neurogenic Claudication Status: Chronic Immunizations: Have You Had Influenza Vaccine: Yes Influenza Vaccine Date: Aug 23, 2012 History of Tetanus Vaccine?: UTD Tetanus Immunization Date: Dec 11, 2011 History of Pneumococcal: Yes Pneumococcal Date: Aug 12, 2007 History of Hepatitis B Vaccine: No Procedures: Echocardiogram - normal Pacemaker interrogation Consultations: Cardiology Medication Reconciliation Continued Medications: Amiodarone HCl (Amiodarone HCl) 200 Mg Tab 400 MG PO BID for 14 Days, #56 TAB take 400mg 2x a day by mouth for 2 weeks then decrease to 200mg daily Aspirin (Aspirin Ec) 81 Mg Tab 81 MG PO DAILY Atorvastatin Calcium (Lipitor) 80 Mg Tab 80 MG PO DAILY, TAB Cholecalciferol (Vitamin D 1000 Unit) 1,000 Unit Cap 2000 INTER.UNIT PO DAILY, CAP Ferrous Sulfate (Iron) 325 Mg Tab 1 TAB PO DAILY Isosorbide Mononitrate Ext Rel (Imdur Ext Rel) 120 Mg Ertab 120 MG PO QAM, 0 Refills Letrozole (Femara) 2.5 Mg Tab 2.5 MG PO DAILY, TAB Levothyroxine Sodium (Synthroid) 88 Mcg Tab 88 MCG PO DAILY, TAB Magnesium Oxide (Mag-Ox) 400 Mg Tab 400 MG PO HS, 0 Refills Metoprolol Succinate (Metoprolol Succinate ER) 25 Mg Tabcr 50 MG PO BID Nitroglycerin (Nitrostat) 0.4 Mg Sub 0.4 MG UT UD PRN for Chest Pain PLACE ONE TABLET UNDER THE TONGUE EVERY 5 MINUTES FOR UP TO 3 DOSES IF NEEDED FOR CHEST PAIN. Pantoprazole (Protonix) 40 Mg Tab 40 MG PO QAM Ramipril (Altace) 10 Mg Cap 5 MG PO DAILY, CAP Ranitidine (Zantac) 150 Mg Tab 150 MG PO QAM Tramadol Hcl (Ultram) 50 Mg Tab 100 MG PO BID Discharge Exam Patient feeling well, no chest pressure during admission. Discussed her findings of normal enzymes, normal echo and pacer interrogation. Updated her that cardiology made some slight adjustments to her pacer settings in the hopes that her symptoms would be alleviated. She felt ready to go home. Review of Systems: Constitutional: No chills, No fatigue, No fever, No problem reported, No sweats, No weakness, No weight loss Eyes: No diplopia, No discharge, No eye pain, No problem reported, No redness, No worsening of vision ENT: No dental problems, No hearing loss, No nasal symptoms, No problem reported, No sore throat, No tinnitus, No trouble swallowing, No unusual epistaxis Respiratory: No cough, No dyspnea at rest, No dyspnea on exertion, No hemoptysis, No problem reported, No shortness of breath, No sputum, No wheezing Cardiovascular: No PND, No chest pain, No claudication, No edema, No orthopnea, No palpitations, No problem reported Abdomen: No GI bleeding, No constipation, No diarrhea, No nausea, No pain, No problem reported, No vomiting Musculoskeletal: No calf pain, No joint pain, No muscle pain, No problem reported, No swelling Genitourinary - Female: No dysuria, No urinary frequency, No urinary incontinence, No urinary retention, No urinary urgency Neurologic: No balance problems, No memory loss, No numbness/tingling, No paralysis, No problem reported, No vertigo, No weakness Psychiatric: No anhedonism, No anxiety, No depression symptoms, No insomnia , No problem reported, No substance abuse Endocrine: No excessive thirst, No excessive urination, No fatigue, No problem reported Hematologic / Lymphatic: No abnormal bleeding/bruising, No clotting problems , No night sweats, No problem reported, No swollen lymph nodes Integumentary: No bleeding, No color change, No itch, No new/changing skin lesions, No problem reported, No rash Physical Exam: General Appearance: WD/WN, no apparent distress Eyes: normal inspection, EOMI, sclerae normal ENT: normal ENT inspection, hearing grossly normal, pharynx normal Neck: supple, no adenopathy, no JVD, trachea midline Respiratory/Chest: chest non-tender, lungs clear, normal breath sounds, no respiratory distress, no accessory muscle use Cardiovascular: regular rate, rhythm, no edema, no gallop, no JVD, no murmur , normal peripheral pulses Abdomen / GI: normal bowel sounds, non tender, soft, no organomegaly Extremities: normal inspection, no calf tenderness, normal capillary refill , no pedal edema, normal range of motion 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 Denied dysphagia, odynophagia. No dyspnea. She had a pacemaker implanted in recent past for sick sinus syndrome due to rate control medications for atrial fibrillation. - Chest pressure: thought to be due to settings of pacemaker, perhaps not allowing her HR to climb appropriately settings adjusted by cardiology during admission she had a normal resting echocardiogram, her cardiac enzymes were normal x 3 and EKG showed paced rhythm no cause of chest pressure could be seen on CXR and there was no pain or pressure on chest palpation d/c to home and instructed to follow up with cardiology if her symptoms persisted other chronic medical problems were all stable and she was maintained on her medications Total Time Spent: Less than 30 minutes This includes examination of the patient, discharge planning, medication reconciliation, and communication with other providers. Discharge Instructions Please refer to the electronic Patient Visit Report (Discharge Instructions) for additional information. Follow-Up Cardiology as needed, [facility] Additional Copies To Alan Alonzo M.D.; Rory Hatch M.D.
[2017-03-22] MEDS ORDERED: PRED10TA PO (05:35)
== END 2017-01-25 17:09 | disposition home or self-care (01) ==
LOC: ENRESERVDT → ENRESERVTM → EDBD 13:37 → C.EDB 13:40 → C.2T 16:42 → UNDOADMOB 17:46
PROVIDERS: ADMIT Internal Medicine; ATTEND Internal Medicine
DX: R07.89 Other chest pain (principal); I48.91 Unspecified atrial fibrillation; I25.10 Atherosclerotic heart disease of native coronary artery without angina pectoris; D64.9 Anemia, unspecified; K21.9 Gastro-esophageal reflux disease without esophagitis; C50.919 Malignant neoplasm of unspecified site of unspecified female breast; I25.2 Old myocardial infarction; N18.3 Chronic kidney disease, stage 3 (moderate); I13.10 Hypertensive heart and chronic kidney disease without heart failure, with stage 1 through stage 4 chronic kidney disease, or unspecified chronic kidney disease; E78.5 Hyperlipidemia, unspecified; M35.3 Polymyalgia rheumatica; E03.9 Hypothyroidism, unspecified; Z79.899 Other long term (current) drug therapy; Z79.82 Long term (current) use of aspirin; Z79.891 Long term (current) use of opiate analgesic; Z98.61 Coronary angioplasty status; Z95.0 Presence of cardiac pacemaker; Z86.73 Personal history of transient ischemic attack (TIA), and cerebral infarction without residual deficits; Z87.891 Personal history of nicotine dependence; Z82.49 Family history of ischemic heart disease and other diseases of the circulatory system; Z80.1 Family history of malignant neoplasm of trachea, bronchus and lung

== ENCOUNTER 2017-04-04 04:56 | Emergency (ER) | payer OTHER, BC ==
[~2017-04-04] VITALS: Ht 165.1 cm; Wt 82.0 kg
[~2017-04-04 04:56] MED LIST changes: +PRED10TA PO
[2017-04-04 04:59] VITALS: Ht 165.1 cm; Wt 82.0 kg
[2017-04-04] MEDS ORDERED: ALBUT/IPRATROP 3MG/0.5MG NEB 3 ML VIAL INH STA (05:25)
[2017-04-04] MEDS ORDERED: AMIO200T4 PO (05:28)
[2017-04-04] MEDS ORDERED: METO50TA16 PO (05:29)
[2017-04-04 05:30] LABS: BASO % 0.2 %; BASO ABS # 0.03 K/uL (0-0.2); COMPLETE YES; EOS % 1.1 %; IG% 0.2 %; LYMPH % 11.9 %; LYMPH ABS # 1.45 K/uL (1.2-3.4); MEAN CELL VOLUME 90.1 fL (80-100); MEAN CORPUSCULAR HEMOGLOBIN 30.4 pg (25-34); MEAN CORPUSCULAR HGB CONC 33.7 g/dl (32-36); MEAN PLATELET VOLUME 8.8 fL (7.4-10.4); MONO % 13.7 %; NEUT % 72.9 %; PLATELET COUNT 266 K/uL (130-400); RED BLOOD COUNT 4.77 M/uL (4.2-5.4); WHITE BLOOD COUNT 12.22 K/uL (4.8-10.8)
[2017-04-04] MEDS ORDERED: NITROGLYCERIN OINT 2% 1GM PACKET EXT ONE (05:30)
[2017-04-04] MEDS ORDERED: POLY335019 PO (05:33)
[2017-04-04 05:39] LABS: ISTAT CREATININE 1.1 mg/dl (0.6-1.3); ISTAT HEMOGLOBIN 14.6 g/dl (12.0-16.0); ISTAT IONIZED CALCIUM 1.17 mmol/l (1.12-1.32)
[2017-04-04 05:44] LABS: POINT OF CARE PRO-BNP 472 pg/ml (0-1800); POINT OF CARE TROPONIN I < 0.030 ng/ml (0-0.045)
[2017-04-04 05:55] LABS: ALT/SGPT 27 U/L (12-78); AST/SGOT 19 U/L (15-37); BLOOD UREA NITROGEN 11 mg/dl (7-18); BUN/CREATININE RATIO 10.3 (10-20); CALCIUM 8.8 mg/dl (8.5-10.1); CARBON DIOXIDE 29 mmol/L (21-32); CHLORIDE 106 mmol/L (98-107); GLUCOSE 83 mg/dl (70-99); POTASSIUM 3.5 mmol/L (3.5-5.1); SODIUM 143 mmol/L (136-145)
[2017-04-04 06:00] LABS: ALKALINE PHOSPHATASE 69 U/L (45-117)
[2017-04-04] MEDS ORDERED: ALBUTEROL HFA 8 GM INHALER INH STA (06:05)
[2017-04-04] MEDS ORDERED: DOXYCYCLINE HYCLATE 100 MG CAP PO ONE (06:15)
[2017-04-04 06:27] VITALS: O2SAT 95
--- NOTE | 2017-04-04 06:37 | EMERGENCY ROOM VISIT NOTE ---
History First contact with patient: 05:08 Chief Complaint: COUGH Stated Complaint: PERSISTANT COUGH W/ FLUIDS/PHLEGM History of Present Illness The patient is a 86 year old female who presents to the Emergency Room with complaints of chest pain with cough and shortness of breath for the past day that is getting increasing in severity who feels slightly sick. Patient is coughing up white frothy sputum today. No history of CHF or pulmonary edema. Patient has had a heart attack and has a pacemaker. Patient denies fevers, abdominal pain, headache, neck stiffness, sore throat, vomiting, diarrhea, leg swelling. She was admitted 6 weeks ago and had a echo which showed 65% ejection fraction. She does have a pacemaker. She is on a prednisone taper back for her chronic pain. Review of Systems See HPI for pertinent positives & negatives. A total of 10 systems reviewed and were otherwise negative. Past Medical/Surgical History Medical Problems: (1) Acute blood loss anemia (2) Anemia (3) Anxiety State Nos (4) Atrial fibrillation (5) Chest pain (6) Coronary artery disease (7) Dizziness (8) Esophageal Reflux (9) GI bleed (10) Heart attack (11) Heart disease (12) Heart palpitations (13) Hematuria (14) Hematuria, gross (15) HTN (hypertension) (16) Hyperlipidemia (17) Hypothyroidism Nos (18) Low back pain (19) [place] [facility] (20) Old Myocardial Infarct (21) Polymyalgia Rheumatica (22) Right flank pain (23) Rt flank pain (24) Sciatica (25) Sciatica (26) Spinal Stenosis, Lumbar Reg, W/Out Neurogenic Claudication (27) Superficial thrombophlebitis (28) Superficial thrombophlebitis (29) Symptoms involving urinary system (30) Symptoms involving urinary system (31) Syncope (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 Surgical Problems: (1) Cataract Extraction Status (2) History of cardiac radiofrequency ablation (3) History of esophagogastroduodenoscopy (4) History of partial mastectomy (5) Percutaneous Translum Coron Angioplasty Status (6) Tubal Ligation Status Family History FHx: heart disease Hypertension Social History Smoking Status: Former Smoker Alcohol Use: none Drug Use: none Marital Status: Housing Status: lives with family Occupation Status: retired Current/Historical Medications Scheduled Amiodarone Hcl (Cordarone), 200 MG PO DAILY Aspirin (Aspirin Ec), 81 MG PO DAILY Atorvastatin Calcium (Lipitor), 80 MG PO DAILY Cholecalciferol (Vitamin D 1000 Unit), 2,000 INTER.UNIT PO DAILY Ferrous Sulfate (Iron), 1 TAB PO DAILY Isosorbide Mononitrate Ext Rel (Imdur Ext Rel), 120 MG PO QAM Letrozole (Femara), 2.5 MG PO DAILY Levothyroxine Sodium (Synthroid), 88 MCG PO DAILY Magnesium Oxide (Mag-Ox), 400 MG PO HS Metoprolol Tartrate (Lopressor) (Lopressor), 50 MG PO BID Pantoprazole (Protonix), 40 MG PO BID Polyethylene Glycol 3350 (Miralax), 17 GM PO DAILY Prednisone Tab (Prednisone), MG PO UD Ranitidine (Zantac), 150 MG PO BID Scheduled PRN Nitroglycerin (Nitrostat), 0.4 MG UT UD PRN for Chest Pain Tramadol Hcl (Ultram), 100 MG PO BID PRN for Pain Allergies Coded Allergies: Adhesives (Verified Allergy, Intermediate, RASH, 04/04/17) Latex (Verified Allergy, Unknown, SKIN IRRITATION, 04/04/17) Physical Exam Vital Signs Date Time Temp Pulse Resp B/P (MAP) Pulse Ox O2 Delivery O2 Flow Rate FiO2 04/04/17 06:27 95 Room Air 04/04/17 05:47 66 22 157/72 100 Nebulizer 04/04/17 05:27 95 Room Air 04/04/17 05:27 96 Room Air 04/04/17 05:27 96 Room Air 04/04/17 05:15 68 04/04/17 05:13 65 18 215/90 95 Room Air 04/04/17 04:59 37.0 70 20 179/79 95 Room Air Physical Exam VITALS: Vitals are noted on the nurse's note and reviewed by myself. Vital signs hypertensive GENERAL: Pleasant female unable to speak in full sentences SKIN: The skin was without rashes, erythema, edema, or bruising. There is no tenting of the skin. Capillary reflex less than 2 seconds. HEAD: Normocephalic atraumatic. EARS: External auditory canals clear, tympanic membranes pearly torres without erythema or effusion bilaterally. EYES: Pupils equal round and reactive to light and accommodation. Conjunctivae without injection, sclerae without icterus. Extraocular movements intact. NOSE: Patent, turbinates without inflammation or discharge. MOUTH: Mucous membranes moist. Pharynx without erythema or exudate. Uvula midline. Airway patent. Tongue does not deviate. NECK: Supple without nuchal rigidity. No lymphadenopathy. No thyromegaly. Cervical spine is nontender. No JVD. HEART: Regular rate and rhythm LUNGS: Diffuse inspiratory and end expiratory basilar rales No retractions or accessory muscle use. ABDOMEN: Positive bowel sounds x 4. Normal tympanic percussion. Soft, nontender, without masses or organomegaly. Rai sign negative. No guarding or rebound tenderness. MUSCULOSKELETAL: No muscle atrophy, erythema, or edema noted. NEURO: Patient was alert and oriented to person place and time. Normal sensation to light and sharp touch. No focal neurological deficits. Medical Decision & Procedures Laboratory Results 04/04/17 05:22 Red Blood Count 4.77, Mean Corpuscular Volume 90.1, Mean Corpuscular Hemoglobin 30.4, Mean Corpuscular Hemoglobin Concent 33.7, Mean Platelet Volume 8.8, Neutrophils (%) (Auto) 72.9, Lymphocytes (%) (Auto) 11.9, Monocytes (%) (Auto) 13.7, Eosinophils (%) (Auto) 1.1, Basophils (%) (Auto) 0.2, Neutrophils # (Auto ) 8.90, Lymphocytes # (Auto) 1.45, Monocytes # (Auto) 1.68, Eosinophils # (Auto ) 0.13, Basophils # (Auto) 0.03 04/04/17 05:22 Test 04/04/17 05:22 04/04/17 05:25 04/04/17 05:27 White Blood Count 12.22 K/uL (4.8-10.8) Red Blood Count 4.77 M/uL (4.2-5.4) Hemoglobin 14.5 g/dL (12.0-16.0) Hematocrit 43.0 % (37-47) Mean Corpuscular Volume 90.1 fL (80-100) Mean Corpuscular Hemoglobin 30.4 pg (25-34) Mean Corpuscular Hemoglobin Concent 33.7 g/dl (32-36) Platelet Count 266 K/uL (130-400) Mean Platelet Volume 8.8 fL (7.4-10.4) Neutrophils (%) (Auto) 72.9 % Lymphocytes (%) (Auto) 11.9 % Monocytes (%) (Auto) 13.7 % Eosinophils (%) (Auto) 1.1 % Basophils (%) (Auto) 0.2 % Neutrophils # (Auto) 8.90 K/uL (1.4-6.5) Lymphocytes # (Auto) 1.45 K/uL (1.2-3.4) Monocytes # (Auto) 1.68 K/uL (0.11-0.59) Eosinophils # (Auto) 0.13 K/uL (0-0.5) Basophils # (Auto) 0.03 K/uL (0-0.2) RDW Standard Deviation 47.8 fL (36.4-46.3) RDW Coefficient of Variation 14.6 % (11.5-14.5) Immature Granulocyte % (Auto) 0.2 % Immature Granulocyte # (Auto) 0.03 K/uL (0.00-0.02) Est Creatinine Clear Calc Drug Dose 38.8 ml/min Estimated GFR () 52.6 Estimated GFR (Non- 45.4 BUN/Creatinine Ratio 10.3 (10-20) Calcium Level 8.8 mg/dl (8.5-10.1) Total Bilirubin 0.6 mg/dl (0.2-1) Direct Bilirubin 0.1 mg/dl (0-0.2) Aspartate Amino Transf (AST/SGOT) 19 U/L (15-37) Alanine Aminotransferase (ALT/SGPT) 27 U/L (12-78) Alkaline Phosphatase 69 U/L (45-117) Troponin I < 0.015 ng/ml (0-0.045) Total Protein 7.0 gm/dl (6.4-8.2) Albumin 3.7 gm/dl (3.4-5.0) Lipase 134 U/L (73-393) Bedside Troponin I < 0.030 ng/ml (0-0.045) OR-Hxq-[id number]-Type Natriuretic Peptide 472 pg/ml (0-1800) Bedside Hemoglobin 14.6 g/dl (12.0-16.0) Bedside Hematocrit 43 % (37-47) Bedside Sodium 141 mEq/L (135-144) Bedside Potassium 3.4 mEq/L (3.3-5.0) Bedside Chloride 101 mEq/L (101-112) Bedside Total CO2 27 mEq/l (24-31) Anion Gap 17.0 mmol/L (16-25) Bedside Blood Urea Nitrogen 11 mg/dl (7-18) Bedside Creatinine 1.1 mg/dl (0.6-1.3) Bedside Glucose (other) 88 mg/dl (70-99) Bedside Ionized Calcium (Xander) 1.17 mmol/l (1.12-1.32) Medications Administered Medications (Trade) Dose Ordered Sig/Cholo Route Start Time Stop Time Status Last Admin Dose Admin Nitroglycerin (Nitroglycerin 2% Oint) 1 inch NOW ONCE EXT 04/04/17 05:30 04/04/17 05:31 DC 04/04/17 05:45 1 INCH Albuterol/ Ipratropium (Duoneb) 3 ml NOW STAT INH 04/04/17 05:25 04/04/17 05:27 DC 04/04/17 05:44 3 ML Doxycycline Hyclate (Vibramycin Cap) 100 mg ONE ONCE PO 04/04/17 06:15 04/04/17 06:16 DC 04/04/17 06:18 100 MG Albuterol (Ventolin Hfa Inhaler) 2 puffs ONE STAT INH 04/04/17 06:05 04/04/17 06:06 DC 04/04/17 06:18 2 PUFFS ED Course Prior records/ancillary studies reviewed. Triage Nursing notes reviewed. Additional history obtained from the family. The patient's history was concerning for respiratory difficulties. Differential diagnosis: Etiologies such as infections, reactive airway disease, pneumonia, pneumothorax , COPD, CHF, cardiac ischemia, pulmonary embolism, musculoskeletal, gastrointestinal, as well as others were entertained. Physical examination: As above. ER treatment provided: Nebulizer, Nitropaste On reassessment the patient felt better. Diagnostic interpretation by me: The electrocardiogram was right bundle-branch block, first 3 AV block, no acute ST-T wave changes, rate of 63. Impression right bundle branch block with first- degree A-V block interpreted by myself unchanged from prior The labs revealed negative troponin. Low BNP Leukocytosis Imaging studies: Chest with mild pulmonary congestion. No overt heart failure. This appears to be consistent with bronchitis. Patient felt much better after being medicated as above. She is able to speak in full sentences. No pneumonia. Mild leukocytosis most likely from prednisone. Negative troponin. Unchanged EKG. Negative BNP. She was not hypoxic. Patient requested to leave and I felt this is reasonable. She is advised to see her family care doctor tomorrow or here in the ER sooner for chest pain, difficulty breathing, worsening signs or symptoms or as needed. She had a recent echo that showed 65 % ejection fraction. By the evaluation outlined above emergent etiologies such as cardiac ischemia, pulmonary embolism, reactive airway disease, pneumonia, pneumothorax, musculoskeletal, serious bacterial infections, as well as others were deemed relatively unlikely. The pt informed about the findings as listed above. All questions were answered and pleased with the treatment. Return instructions were outlined and the patient was discharged in stable condition. Outpatient prescription management: Doxycycline Referral: The patient was referred back to their primary care physician for follow-up in 2 to 3 days for a recheck of the current condition. case reviewed with my Attending. Medical Decision As above Patient was found to have elevated blood pressure and was referred to their family doctor for recheck and further treatment. I attest that I have personally reviewed the patient's medications. Impression Primary Impression: Acute bronchitis Departure Information Dispostion Home / Self-Care Condition GOOD Referrals Rory Hatch M.D. (PCP) Patient Instructions [facility] Additional Instructions Doxycycline 100mg: Take one pill twice daily for seven days for your infection. Take with food, but avoid dairy. Avoid prolonged sun exposure since this medication makes you temporarily more susceptible to sunburns. All antibiotics can cause diarrhea. If this occurs and you feel worse or it does not resolve in 1-2 days follow up with your doctor or return to the Emergency Department as this could be signs of serious underlying problems. Any medication can cause an allergic reaction, stop the pills immediately and return to the ER for rash, hives, breathing difficulties, or swelling. Albuterol Inhaler: Take 2 puffs four times daily for seven days, then as needed. Acetaminophen(Tylenol) may be used for fever or pain. Use 1000mg every six hours as needed. Avoid using more than 3000mg in a 24 hour period. Controlling your fever with Tylenol and Ibuprofen as above will make you feel better. Rest and drink plenty of fluids. Avoid strenuous activity until your symptoms resolve and your breathing returns to normal. Continue current medications. Return to the ER for chest pain, difficulty breathing, persistent fevers, vomiting, worsening of your condition, or as needed. Follow-up with family care tomorrow. Problem Qualifiers Primary Impression: Acute bronchitis Bronchitis organism: unspecified organism Qualified Codes: J20.9 - Acute bronchitis, unspecified
[2017-04-04] MEDS ORDERED: DOXY100C2 PO (06:38)
[2017-04-04 06:46] VITALS: BP 177/75; PULSE 84; TEMP 37; O2SAT 95
--- NOTE | 2017-04-04 07:27 | DIAGNOSTIC IMAGING REPORT ---
CHEST ONE VIEW PORTABLE CLINICAL HISTORY: CHEST PAIN dyspnea COMPARISON STUDY: 01/24/2017 FINDINGS: Mild cardiomegaly. Permanent bipolar cardiac pacemaker. Diaphragms smooth. Mild fullness pulmonary vasculature. IMPRESSION: Pulmonary vascular congestion. Electronically signed by: Jak Palencia M.D. 04/04/2017 7:26 AM Dictated Date/Time: 04/04/2017 7:25 AM
== END 2017-04-04 06:47 | disposition home or self-care (01) ==
LOC: C.EDB 04:57
DX: J20.9 Acute bronchitis, unspecified (principal); D72.829 Elevated white blood cell count, unspecified; I48.91 Unspecified atrial fibrillation; I10 Essential (primary) hypertension; I25.2 Old myocardial infarction; E78.5 Hyperlipidemia, unspecified; K21.9 Gastro-esophageal reflux disease without esophagitis; F41.9 Anxiety disorder, unspecified; I25.10 Atherosclerotic heart disease of native coronary artery without angina pectoris; E03.9 Hypothyroidism, unspecified; I50.9 Heart failure, unspecified; D64.9 Anemia, unspecified; Z85.3 Personal history of malignant neoplasm of breast; Z98.61 Coronary angioplasty status; Z98.51 Tubal ligation status; Z90.10 Acquired absence of unspecified breast and nipple; Z98.49 Cataract extraction status, unspecified eye; Z98.890 Other specified postprocedural states; Z87.19 Personal history of other diseases of the digestive system

== ENCOUNTER → 2017-04-10 | Outpatient (CLI) | payer OTHER, BC ==
[~2017-04-10] MED LIST changes: -ALT/10 PO; +AMIO200T4 PO; -CRD200 PO; +DOXY100C2 PO; +METO50TA16 PO; +POLY335019 PO; -TPRSR/25 PO
== END | disposition home or self-care (01) ==
LOC: C.LABPVFM 15:28
PROVIDERS: ATTEND Family Medicine
DX: R30.0 Dysuria (principal)

== ENCOUNTER → 2017-06-01 | Outpatient (CLI) | payer OTHER, BC ==
[2017-06-01 17:52] LABS: URINE APPEARANCE CLEAR (CLEAR); URINE BILIRUBIN NEG (NEG); URINE COLOR YELLOW; URINE EPITHELIAL CELL AUTO 0-5 /lpf (0-5); URINE NITRITE NEG (NEG); URINE PH 7.5 (4.5-7.5); URINE SPECIFIC GRAVITY 1.015 (1.000-1.030); UROBILINOGEN NEG (NEG); ZZUR CULT IF INDIC CLEAN CATCH NO
[2017-06-01 17:59] LABS: MANUAL MICROSCOPIC REQUIRED? NO; REVIEW REQ? NO
== END | disposition home or self-care (01) ==
LOC: C.LABPVFM 10:47
PROVIDERS: ATTEND Family Medicine
DX: N39.0 Urinary tract infection, site not specified (principal)

== ENCOUNTER 2017-06-28 06:41 | Emergency (ER) | payer OTHER, BC ==
[2017-06-28 06:49] VITALS: TEMP 36.7
[2017-06-28] MEDS ORDERED: SODIUM CHLORIDE 0.9% 1000ML 1,000 ML IV STA (07:18)
[2017-06-28] MEDS ORDERED: ONDANSETRON INJ 2 MG/ML 2 ML VIAL IV STA (07:18)
[2017-06-28] MEDS: MoRPHine SULFATE 4 MG/ML 1 ML CARP\\VIAL IV PRN ×2 (07:29→08:32)
[2017-06-28 07:38] LABS: BASO % 0.5 %; BASO ABS # 0.05 K/uL (0-0.2); COMPLETE YES; EOS % 2.2 %; HEMATOCRIT 44.7 % (37-47); IG% 0.1 %; LYMPH % 19.6 %; LYMPH ABS # 1.86 K/uL (1.2-3.4); MEAN CELL VOLUME 92.5 fL (80-100); MEAN CORPUSCULAR HEMOGLOBIN 30.6 pg (25-34); MEAN CORPUSCULAR HGB CONC 33.1 g/dl (32-36); MEAN PLATELET VOLUME 9.1 fL (7.4-10.4); MONO % 12.2 %; NEUT % 65.4 %; PLATELET COUNT 309 K/uL (130-400); RED BLOOD COUNT 4.83 M/uL (4.2-5.4)
[2017-06-28 07:50] LABS: ALT/SGPT 30 U/L (12-78); BLOOD UREA NITROGEN 10 mg/dl (7-18); BUN/CREATININE RATIO 10.4 (10-20); CALCIUM 9.6 mg/dl (8.5-10.1); CARBON DIOXIDE 31 mmol/L (21-32); CHLORIDE 102 mmol/L (98-107); CREATININE 0.98 mg/dl (0.60-1.20); GLUCOSE 86 mg/dl (70-99); POTASSIUM 3.4 mmol/L (3.5-5.1); SODIUM 140 mmol/L (136-145)
[2017-06-28 07:52] LABS: ALKALINE PHOSPHATASE 74 U/L (45-117); AST/SGOT 24 U/L (15-37)
[2017-06-28 07:58] LABS: URINE APPEARANCE CLEAR (CLEAR); URINE BILIRUBIN NEG (NEG); URINE COLOR YELLOW; URINE EPITHELIAL CELL AUTO 0-5 /lpf (0-5); URINE NITRITE NEG (NEG); URINE SPECIFIC GRAVITY 1.012 (1.000-1.030); UROBILINOGEN NEG (NEG); ZZUR CULT IF INDIC CLEAN CATCH NO
--- NOTE | 2017-06-28 07:58 | DIAGNOSTIC IMAGING REPORT ---
ABD/PELVIS WITHOUT FOR STONE CT DOSE: 1251.68 mGy.cm HISTORY: Flank pain flank pain TECHNIQUE: Multiaxial CT images of the abdomen and pelvis were performed without the use of intravenous and oral contrast according to the standard department stone protocol. A dose lowering technique was utilized adhering to the principles of ALARA. COMPARISON STUDY: 08/31/2013 FINDINGS: Lung bases are considered clear. 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 Mesenteric artery. This is similar as compared to the prior study. Kidneys negative for calcification or hydronephrosis. There is no evidence for an obstructing urinary tract calculus. Several calcifications are adjacent to the course of the right ureter but no involvement of the ureter is present. Nonobstructive bowel pattern. The appendix is normal. IMPRESSION: No renal stones or hydronephrosis. Nonobstructive bowel pattern. Normal appendix. The above report was generated using voice recognition software. It may contain grammatical, syntax or spelling errors. Electronically signed by: Jak Palencia M.D. 06/28/2017 7:57 AM Dictated Date/Time: 06/28/2017 7:48 AM
[2017-06-28 08:00] LABS: MANUAL MICROSCOPIC REQUIRED? NO; REVIEW REQ? NO
[2017-06-28 09:19] VITALS: BP 156/62; PULSE 50; O2SAT 98
--- NOTE | 2017-06-28 09:33 | EMERGENCY ROOM VISIT NOTE ---
History Report prepared by Maday: Elizabeth Aguilar Under the Supervision of: Nicola VarnerO. First contact with patient: 07:13 Chief Complaint: ABDOMINAL PAIN Stated Complaint: SEVERE PAIN IN RIGHT SIDE Nursing Triage Summary: right side abdominal pain that goes into back. hx sciatica on the left side. yesterday pain went down both legs. no n/v/d History of Present Illness The patient is an 86 year old female who presents to the Emergency Room with complaints of persistent right sided abdominal pain that began today prior to arrival. She currently rates her discomfort as a 6/10 in severity. The patient states that for the last several weeks she has intermittently been experiencing left sided abdominal pain. She additionally notes left sided sciatica, noting pain down her left leg. The patient states that she woke this morning and had the abdominal pain on the right side and notices it radiating into her right back. She states that ambulation worsens her pain. The patient denies any vomiting or diarrhea. She reports slight nausea. She describes her discomfort as a pressure. The patient's family reports that the patient has had previous UTIs that have been treated in the emergency department. Source of History: patient, family Onset: today prior to arrival Position: abdomen (right sided) Symptom Intensity: 6/10 Quality: pressure Timing: other (persistent) Associated Symptoms: + nausea, No vomiting, No diarrhea Review of Systems See HPI for pertinent positives & negatives. A total of 10 systems reviewed and were otherwise negative. 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 (21) Polymyalgia Rheumatica (22) Right flank pain (23) Rt flank pain (24) Sciatica (25) Sciatica (26) Spinal Stenosis, Lumbar Reg, W/Out Neurogenic Claudication (27) Superficial thrombophlebitis (28) Superficial thrombophlebitis (29) Symptoms involving urinary system (30) Symptoms involving urinary system (31) Syncope (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 Surgical Problems: (1) Cataract Extraction Status (2) History of cardiac radiofrequency ablation (3) History of esophagogastroduodenoscopy (4) History of partial mastectomy (5) Percutaneous Translum Coron Angioplasty Status (6) Tubal Ligation Status Family History FHx: heart disease Hypertension Social History Smoking Status: Never Smoker Alcohol Use: none Drug Use: none Marital Status: Housing Status: lives with family Occupation Status: retired Current/Historical Medications Scheduled Amiodarone Hcl (Cordarone), 100 MG PO DAILY Aspirin (Aspirin Ec), 81 MG PO DAILY Atorvastatin Calcium (Lipitor), 80 MG PO QPM Cholecalciferol (Vitamin D 1000 Unit), 2,000 INTER.UNIT PO DAILY Ferrous Sulfate (Iron), 325 MG PO DAILY Isosorbide Mononitrate Ext Rel (Imdur Ext Rel), 120 MG PO QAM Letrozole (Femara), 2.5 MG PO DAILY Levothyroxine Sodium (Synthroid), 88 MCG PO DAILY Magnesium Oxide (Mag-Ox), 400 MG PO HS Metoprolol Tartrate (Lopressor) (Lopressor), 50 MG PO BID Pantoprazole (Protonix), 40 MG PO BID Polyethylene Glycol 3350 (Miralax), 17 GM PO DAILY Prednisone Tab (Prednisone), 5 MG PO DAILY Ranitidine (Zantac), 150 MG PO BID Scheduled PRN Nitroglycerin (Nitrostat), 0.4 MG UT UD PRN for Chest Pain Tramadol Hcl (Ultram), 100 MG PO BID PRN for Pain Allergies Coded Allergies: Adhesives (Verified Allergy, Intermediate, RASH, 06/28/17) Latex (Verified Allergy, Unknown, SKIN IRRITATION, 06/28/17) Physical Exam Vital Signs Date Time Temp Pulse Resp B/P (MAP) Pulse Ox O2 Delivery O2 Flow Rate FiO2 06/28/17 09:19 50 18 156/62 98 Nasal Cannula 2.0 06/28/17 08:26 52 18 141/57 90 Room Air 06/28/17 06:49 36.7 54 18 192/80 97 Room Air Physical Exam CONSTITUTIONAL/VITAL SIGNS: Reviewed / noted above. GENERAL: Non-toxic in appearance. INTEGUMENTARY: Warm, dry, and Victoria Vera. HEAD: Normocephalic. EYES: without scleral icterus or trauma. ENT/OROPHARYNX: clear and moist. LYMPHADENOPATHY/NECK: Is supple without lymphadenopathy or meningismus. RESPIRATORY: Lungs clear and equal. CARDIOVASCULAR: Regular rate and rhythm. GI/ABDOMEN: Soft with no significant abdominal tenderness. No organomegaly or pulsatile mass. No rebound or guarding. Normal bowel sounds. EXTREMITIES: Warm and well perfused. BACK: No CVA tenderness. NEUROLOGICAL: Intact without focal deficits. PSYCHIATRIC: normal affect. MUSCULOSKELETAL: Normally developed with good muscle tone. Medical Decision & Procedures ER Provider Diagnostic Interpretation: CT results as stated below per my review and radiologist interpretation: ABD/PELVIS WITHOUT FOR STONE CT DOSE: 1251.68 mGy.cm HISTORY: Flank pain flank pain TECHNIQUE: Multiaxial CT images of the abdomen and pelvis were performed without the use of intravenous and oral contrast according to the standard department stone protocol. A dose lowering technique was utilized adhering to the principles of ALARA. COMPARISON STUDY: 08/31/2013 FINDINGS: Lung bases are considered clear. 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 Mesenteric artery. This is similar as compared to the prior study. Kidneys negative for calcification or hydronephrosis. There is no evidence for an obstructing urinary tract calculus. Several calcifications are adjacent to the course of the right ureter but no involvement of the ureter is present. Nonobstructive bowel pattern. The appendix is normal. IMPRESSION: No renal stones or hydronephrosis. Nonobstructive bowel pattern. Normal appendix. The above report was generated using voice recognition software. It may contain grammatical, syntax or spelling errors. Electronically signed by: Jak Palencia M.D. 06/28/2017 7:57 AM Dictated Date/Time: 06/28/2017 7:48 AM Laboratory Results 06/28/17 07:10 Red Blood Count 4.83, Mean Corpuscular Volume 92.5, Mean Corpuscular Hemoglobin 30.6, Mean Corpuscular Hemoglobin Concent 33.1, Mean Platelet Volume 9.1, Neutrophils (%) (Auto) 65.4, Lymphocytes (%) (Auto) 19.6, Monocytes (%) (Auto) 12.2, Eosinophils (%) (Auto) 2.2, Basophils (%) (Auto) 0.5, Neutrophils # (Auto ) 6.21, Lymphocytes # (Auto) 1.86, Monocytes # (Auto) 1.16, Eosinophils # (Auto ) 0.21, Basophils # (Auto) 0.05 06/28/17 07:10 Test 06/28/17 07:00 06/28/17 07:10 Urine Color YELLOW Urine Appearance CLEAR (CLEAR) Urine pH 7.0 (4.5-7.5) Urine Specific [place] 1.012 (1.000-1.030) Urine Protein NEG (NEG) Urine Glucose (UA) NEG (NEG) Urine Ketones NEG (NEG) Urine Occult Blood NEG (NEG) Urine Nitrite NEG (NEG) Urine Bilirubin NEG (NEG) Urine Urobilinogen NEG (NEG) Urine Leukocyte Esterase NEG (NEG) Urine WBC (Auto) 1-5 /hpf (0-5) Urine RBC (Auto) 0-4 /hpf (0-4) Urine Hyaline Casts (Auto) 0 /lpf (0-5) Urine Epithelial Cells (Auto) 0-5 /lpf (0-5) Urine Bacteria (Auto) NEG (NEG) White Blood Count 9.50 K/uL (4.8-10.8) Red Blood Count 4.83 M/uL (4.2-5.4) Hemoglobin 14.8 g/dL (12.0-16.0) Hematocrit 44.7 % (37-47) Mean Corpuscular Volume 92.5 fL (80-100) Mean Corpuscular Hemoglobin 30.6 pg (25-34) Mean Corpuscular Hemoglobin Concent 33.1 g/dl (32-36) Platelet Count 309 K/uL (130-400) Mean Platelet Volume 9.1 fL (7.4-10.4) Neutrophils (%) (Auto) 65.4 % Lymphocytes (%) (Auto) 19.6 % Monocytes (%) (Auto) 12.2 % Eosinophils (%) (Auto) 2.2 % Basophils (%) (Auto) 0.5 % Neutrophils # (Auto) 6.21 K/uL (1.4-6.5) Lymphocytes # (Auto) 1.86 K/uL (1.2-3.4) Monocytes # (Auto) 1.16 K/uL (0.11-0.59) Eosinophils # (Auto) 0.21 K/uL (0-0.5) Basophils # (Auto) 0.05 K/uL (0-0.2) RDW Standard Deviation 46.7 fL (36.4-46.3) RDW Coefficient of Variation 13.7 % (11.5-14.5) Immature Granulocyte % (Auto) 0.1 % Immature Granulocyte # (Auto) 0.01 K/uL (0.00-0.02) Anion Gap 7.0 mmol/L (3-11) Estimated GFR () 60.5 Estimated GFR (Non- 52.2 BUN/Creatinine Ratio 10.4 (10-20) Calcium Level 9.6 mg/dl (8.5-10.1) Total Bilirubin 0.5 mg/dl (0.2-1) Direct Bilirubin 0.2 mg/dl (0-0.2) Aspartate Amino Transf (AST/SGOT) 24 U/L (15-37) Alanine Aminotransferase (ALT/SGPT) 30 U/L (12-78) Alkaline Phosphatase 74 U/L (45-117) Total Protein 7.6 gm/dl (6.4-8.2) Albumin 3.9 gm/dl (3.4-5.0) Lipase 140 U/L (73-393) Laboratory results as stated above per my review. Medications Administered Medications (Trade) Dose Ordered Sig/Cholo Route Start Time Stop Time Status Last Admin Dose Admin Sodium Chloride 1,000 ml @ 250 mls/hr Q4H STAT IV 06/28/17 07:18 06/28/17 11:17 06/28/17 07:29 250 MLS/HR Ondansetron HCl (Zofran Inj) 4 mg NOW STAT IV 06/28/17 07:18 06/28/17 07:21 DC 06/28/17 07:28 4 MG Morphine Sulfate (MoRPHine SULFATE INJ) 4 mg Q15M PRN IV 06/28/17 07:30 07/12/17 07:29 06/28/17 08:32 4 MG ED Course 0714: Previous medical records were reviewed. The patient was evaluated in room A10. A complete history and physical examination was performed. 0718: Ordered Zofran Inj 4 mg IV, Sodium Chloride 1000 ml @ 250 mls/hr IV. 0730: Ordered Morphine Sulfate 4 mg IV. 0857: I reevaluated the patient and she is resting. I discussed the exam findings with her and her family and I discussed the treatment plan. She verbalized complete understanding and agreement. She is ready to go home. Medical Decision Differential considered: pancreatitis, hepatitis, or acute cholecystitis, AAA, UTI, pyelonephritis, kidney stones, appendicitis, diverticulitis, shingles, bowel obstruction mesenteric ischemia, intussusception, hernia, ovarian torsion , ruptured ovarian cyst. This is an 86-year-old female who presents to the ED with a chief complaint of right-sided abdominal pain. The patient has had some chronic left-sided abdominal pain for weeks. She states this morning she developed a sudden right- sided abdominal pain. She did not have any associated nausea, vomiting or other symptoms. She did state that the pain seemed to radiate down her leg some. The patient's exam was relatively unremarkable. She reported that her pain seems worse with walking and movement. She has no abdominal tenderness on exam. Her blood pressure was elevated. She was told to follow-up with her PCP for this. This could be pain related. She also did not take her medication this morning and it could be related to that. She did take her medication while she was in the ED. Her blood pressure did seem to improve but was still a little elevated. A CT scan contrast of the abdomen and pelvis did not show acute process. Her CBC and complete metabolic panel normal. Lipase was normal. Urine did not show infection. The patient was told results the test. She is felt to be stable for discharge. She states that she is no longer pain. She was given some IV medication for pain. She was given IV morphine as well as IV fluids and IV Zofran. Medication Reconcilliation Current Medication List: was personally reviewed by me Blood Pressure Screening Patient's blood pressure: Elevated blood pressure Blood pressure disposition: Referred to PCP Impression Primary Impression: Right sided abdominal pain Scribe Attestation The scribe's documentation has been prepared under my direction and personally reviewed by me in its entirety. I confirm that the note above accurately reflects all work, treatment, procedures, and medical decision making performed by me. Departure Information Dispostion Home / Self-Care Referrals Rory Hatch M.D. (PCP) Patient Instructions My [facility] Additional Instructions Follow-up with your doctor for further care and evaluation in 1-2 days. Return to the emergency department for worsening or new symptoms or any concerns. You have been examined and treated today on an emergency basis only. This is not a substitute for, or an effort to provide, complete comprehensive medical care. It is impossible to recognize and treat all injuries or illnesses in a single emergency department visit. It is therefore important that you follow up closely with your doctor. Call as soon as possible for an appointment.
== END 2017-06-28 09:42 | disposition home or self-care (01) ==
LOC: C.EDB 06:42 → C.EDA 09:42
DX: R10.9 Unspecified abdominal pain (principal); D64.9 Anemia, unspecified; F41.9 Anxiety disorder, unspecified; I48.91 Unspecified atrial fibrillation; I25.10 Atherosclerotic heart disease of native coronary artery without angina pectoris; K21.9 Gastro-esophageal reflux disease without esophagitis; I25.2 Old myocardial infarction; I11.9 Hypertensive heart disease without heart failure; E78.5 Hyperlipidemia, unspecified; E03.9 Hypothyroidism, unspecified; Z85.3 Personal history of malignant neoplasm of breast; M35.3 Polymyalgia rheumatica; M48.06 Spinal stenosis, lumbar region; Z86.72 Personal history of thrombophlebitis; Z79.82 Long term (current) use of aspirin; Z79.52 Long term (current) use of systemic steroids; Z79.899 Other long term (current) drug therapy

== ENCOUNTER → 2017-12-19 | Outpatient (CLI) | payer OTHER, BC ==
[~2017-12-19] MED LIST changes: -DOXY100C2 PO; +RANI150T85 PO; -ZNTT/150 PO
== END | disposition home or self-care (01) ==
LOC: C.LABPVFM 15:29
PROVIDERS: ATTEND Family Medicine
DX: M48.00 Spinal stenosis, site unspecified (principal)

== ENCOUNTER → 2018-05-21 | Outpatient (CLI) | payer OTHER, BC ==
[2018-05-21 17:27] LABS: BASO % 0.5 %; BASO ABS # 0.04 K/uL (0-0.2); EOS % 1.2 %; HEMOGLOBIN 14.3 g/dL (12.0-16.0); IG# 0.03 K/uL (0.00-0.02); LYMPH % 16.8 %; LYMPH ABS # 1.38 K/uL (1.2-3.4); MEAN CELL VOLUME 94.1 fL (80-100); MEAN CORPUSCULAR HEMOGLOBIN 31.3 pg (25-34); MEAN CORPUSCULAR HGB CONC 33.3 g/dl (32-36); MEAN PLATELET VOLUME 9.4 fL (7.4-10.4); MONO % 13.9 %; MONO ABS # 1.14 K/uL (0.11-0.59); NEUT % 67.2 %; NEUT ABS # 5.53 K/uL (1.4-6.5); PLATELET COUNT 262 K/uL (130-400); RED CELL DISTRIBUTION WIDTH CV 13.9 % (11.5-14.5); RED CELL DISTRIBUTION WIDTH SD 47.8 fL (36.4-46.3); WHITE BLOOD COUNT 8.22 K/uL (4.8-10.8)
[2018-05-21 17:55] LABS: BLOOD UREA NITROGEN 17 mg/dl (7-18); CALCIUM 8.7 mg/dl (8.5-10.1); CARBON DIOXIDE 29 mmol/L (21-32); CREATININE 1.08 mg/dl (0.60-1.20); GLUCOSE 108 mg/dl (70-99); POTASSIUM 4.2 mmol/L (3.5-5.1); SODIUM 137 mmol/L (136-145)
[2018-05-22 06:30] LABS: HEMOGLOBIN A1C 5.8 % (4.5-5.6)
== END | disposition home or self-care (01) ==
LOC: C.LABPVFM 16:11
PROVIDERS: ATTEND Family Medicine
DX: R35.0 Frequency of micturition (principal); F41.9 Anxiety disorder, unspecified; R73.09 Other abnormal glucose